=== PATIENT | male | born 1950 | race Caucasian/White ===

== ENCOUNTER 2021-09-06 12:49 | Emergency (ER) | payer MEDICARE, MEDICAID, SELFPAY ==
[2021-09-06] VITALS (25 sets, daily range): BP systolic 106–131; BP diastolic 42–77; PULSE 56–112; RESP 14–31; TEMP 37.3; O2SAT 96–100
--- NOTE | ~2021-09-06 | XR_ITS ---
EXAMINATION: XR knee RT 3V DATE: 09/06/2021 15:28 INDICATION: Right knee pain. TECHNIQUE: 3 views of right knee were obtained. COMPARISON: None. FINDINGS: Bone alignment is normal. No fracture. There is a 3.3 cm nonaggressive lytic lesion with sc lerotic margin in proximal tibial metadiaphysis, likely benign. There is mild osteoarthritis of kathleen lofemoral compartment. There is chondrocalcinosis of the menisci. No knee joint effusion. IMPRESSION: 1. Mild right knee osteoarthritis. 2. 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 Reviewed, dictated and finalized at location B.
--- NOTE | ~2021-09-06 | CT_ITS ---
EXAMINATION: CT lumbar spine wo con DATE: 09/06/2021 14:09 INDICATION: Left low back pain post fall 2 months prior. TECHNIQUE: Computed tomography (CT) of the lumbar spine was performed without intravenous contrast. A utomated exposure control and iterative reconstruction technique were employed. The dose-length produ ct was 442.82 mGy-cm. COMPARISON: None FINDINGS: Alignment is normal. Subacute appearing L1 burst fracture with 3 mm retropulsion and 60% central vert ebral body height loss. Remaining vertebral body heights are normal. Mild disc height loss at T11-T12 there are also small Schmorl's nodes along both endplates. Mild disc height loss at L3-L4 and L4-L5. There is calcified atherosclerosis of the aorta and many of the other arteries in the visualized pos terior pelvis. Paravertebral soft tissues are unremarkable. The following disc levels are specificall y discussed: T11-T12: There is minimal bilateral facet joint osteoarthritis. There is no neural foraminal stenosi s. There is no central canal stenosis. T12-L1: Mild retropulsion of the superior posterior wall of L1. There is mild bilateral facet joint o steoarthritis. There is no neural foraminal stenosis. There is mild central canal stenosis. L1-L2: There is mild bilateral facet joint osteoarthritis. There is no neural foraminal stenosis. Th ere is no central canal stenosis. L2-L3: There is mild bilateral facet joint osteoarthritis. There is no neural foraminal stenosis. Th ere is no central canal stenosis. L3-L4: Disc is mildly bulging. There is mild bilateral facet joint osteoarthritis. There is mild left neural foraminal stenosis. There is mild central canal stenosis. L4-L5: Disc is mildly bulging. There is mild bilateral facet joint osteoarthritis. There is mild bila teral neural foraminal stenosis. There is mild central canal stenosis. L5-S1: Disc is bulging. There is mild bilateral facet joint osteoarthritis. There is mild to moderate bilateral neural foraminal stenosis. There is no central canal stenosis. IMPRESSION: 1. Subacute appearing L1 burst fracture with 60% central vertebral body height loss and 3 mm retropul gabby resulting in mild central canal stenosis at 2. Mild lumbar spondylosis. Reviewed, dictated and finalized at location A. IMPRESSION: 1. Subacute appearing L1 burst fracture with 60% central vertebral body height loss and 3 mm retropulsion resulting in mild central canal stenosis at 2. Mild lumbar spondylosis.
--- NOTE | ~2021-09-06 | XR_ITS ---
EXAMINATION: XR knee LT 3V DATE: 09/06/2021 15:28 INDICATION: Medial left knee pain. TECHNIQUE: 3 views of left knee were obtained. COMPARISON: None. FINDINGS: Bone alignment is normal. No fracture. There is mild tricompartmental osteoarthritis charac terized by tiny osteophytes. There is chondrocalcinosis of the menisci. No knee joint effusion. IMPRESSION: 1. Mild left knee osteoarthritis. Reviewed, dictated and finalized at location B.
--- NOTE | ~2021-09-06 | XR_ITS ---
EXAMINATION: XR hip LT 2V w AP pelvis DATE: 09/06/2021 13:30 INDICATION: Left hip pain post fall TECHNIQUE: Anteroposterior view of the pelvis and anteroposterior and cross-table lateral views of th e left hip were obtained. COMPARISON: None. FINDINGS: Bone alignment is normal. Asymmetric mild varus angulation at the right hip which could be either dev elopmental or related to old healed fracture. Hypertrophic change along the cortex at the medial aspe ct of the proximal right femur which may represent physiologic response to the varus angulation of th e hip. No acute fracture. Bilateral hip joint spaces are normal. Atherosclerotic calcification in the pelvis and along the visualized proximal bilateral thighs. A few phleboliths in the pelvis. IMPRESSION: 1. No acute osseous abnormality. 2. Chronic appearing asymmetric varus angulation at the right hip which could be developmental or seq uela of old trauma. Correlate with clinical history. Reviewed, dictated and finalized at location A. IMPRESSION: 1. No acute osseous abnormality. 2. Chronic appearing asymmetric varus angulation at the right hip which could b e developmental or sequela of old trauma. Correlate with clinical history.
--- NOTE | 2021-09-06 13:16 | ED.GENADULT ---
HPI - General Adult General Chief complaint: Fall Stated complaint: leg pain Time Seen by Provider: 09/07/21 00:18 History of Present Illness HPI narrative: Patient is a 70-year-old male who presents ER with inability to walk and constipation. Patient reports that 2 months ago he fell backwards onto his tailbone. Since then he has had pain and has been unable to walk due to pain in his knees and buttock. He reports he can get up from his bed to get to a bedside commode to defecate and he otherwise pees in a cup. He has no numbness or tingling to his lower extremities. He did not strike his head or lose consciousness. He has not had a bowel movement in 5 days and he reports today he was unable to use his legs because his knees hurt despite not having any new trauma. Related Data Allergies Allergy/AdvReac Type Severity Reaction Status Date / Time Penicillins AdvReac Swelling Verified 09/06/21 12:55 Review of Systems Review of Systems: All systems reviewed & are unremarkable except as noted in HPI and below Constitutional: Constitutional: Denies chills and Denies fever(s) Cardiovascular: Cardiovascular: Denies chest pain and Denies rapid heart rate Respiratory: Respiratory: Denies cough and Denies dyspnea Gastrointestinal: Gastrointestinal: Denies abdominal pain, Reports constipation, Denies diarrhea, Denies nausea and Denies vomiting Genitourinary: Genitourinary: Denies oliguria, Denies dysuria, Denies urinary frequency and Denies urinary incontinence Musculoskeletal: Musculoskeletal: Reports back pain, Reports arthralgias, Denies joint swelling and Denies muscle cramps Neurologic: Denies headache(s), Denies focal weakness and Denies numbness PMFSH Past Medical History Medical History (Updated 09/06/21 @ 20:18 by Matthieu Parks MD) COPD (chronic obstructive pulmonary disease) Surgical History Surgical History (Updated 09/06/21 @ 20:14 by Matthieu Parks MD) No history of previous surgery Social History Social History (Updated 09/06/21 @ 20:14 by Matthieu Parks MD) Smoking status: Former smoker Exam Narrative: GENERAL: Chronically ill-appearing, well-nourished, and in no acute distress. HEAD: Normocephalic, atraumatic. EYES: PERRL and EOMI. ENT: Mucous membranes moist. CHEST: Clear to auscultation. No respiratory distress. HEART: Regular rate and rhythm. Normal peripheral pulses. ABDOMEN: Soft, nontender, nondistended. Normal rectal tone and normal sensation of the perineum. EXTREMITIES: Bilateral lower extremities with plantar flexion and dorsiflexion intact at the ankle with 5/5 strength. Patient can have his legs extended at the knees and then pulls them back into a flexed position due to pain, strength is 4/5. Hip strength 4/5. No palpable point tenderness to the knees. Patient reports tenderness over the lateral aspect left hip. All range of motion testing is shaky and does not seem particularly fluid. Back: No reproducible midline tenderness of T/L-spine. No reproducible paraspinal muscular tenderness. No tenderness over the tailbone or sacrum or SI joints. SKIN: Warm, dry, no rash. NEURO: Alert and oriented x3. Lower extremity weakness as noted above. No sharp/soft deficit in the extremities and perineum. Course Course Emergency Course: Patient made aware of imaging results. I discussed the case with Dr. Celaya at [facility] for the spine team. He is excepted the patient as a direct admit under the care of Dr. Aragon. Awaiting a bed for transfer. Patient stable. Vital Signs Vital signs: Vital Signs Temperature 99.2 F 09/06/21 12:46 Pulse Rate 112 H 09/06/21 12:46 Respiratory Rate 31 H 09/06/21 12:46 Blood Pressure 122/77 09/06/21 12:46 Pulse Oximetry 98 09/06/21 12:46 Oxygen Delivery Nasal Cannula 09/06/21 12:46 Oxygen Flow Rate 3 09/06/21 12:46 Temperature 99.2 F 09/06/21 12:46 Pulse Rate 78 09/07/21 04:50 Respiratory Rate 15 09/07/21 04:50 Blood
[2021-09-06 13:51] LABS: Basophils Absolute Auto 0.1 K/mm3 (0.0-0.1); Basophils Percent Auto 0.6 % (0.2-1.2); Eosinophils Absolute Auto 0.1 K/mm3 (0-0.3); Eosinophils Percent Auto 1.3 % (0-4.4); Hemoglobin 11.4 g/dL (14.0-18.0); Immature Granulocyte Absolute 0.03 K/mm3 (0.00-0.031); Immature Granulocyte Percent A 0.3 % (0-0.5); Lymphocytes Absolute Auto 0.85 K/mm3 (0.9-3.2); Lymphocytes Percent Auto 8.5 % (18.3-44.2); Mean Corpuscular Hemoglobin 27.1 pg (26-34); Mean Corpuscular Volume 90.5 fl (80-100); Mean Platelet Volume 11.1 fl (7.4-10.4); Monocytes Absolute Auto 1.2 K/mm3 (0.1-0.6); Monocytes Percent Auto 12.1 % (2.6-8.5); Neutrophils Absolute Auto 7.7 K/mm3 (1.3-6.7); Neutrophils Percent Auto 77.2 % (45.5-73.1); Platelet Count Result 398 k/mm3 (150-375); Red Cell Distribution Width 15.9 % (11.5-14.5)
[2021-09-06] MEDS: MORPHINE SULFATE (*CRX) 4 MG/ML INJ IV PUSH ×3 (13:54→20:31)
[2021-09-06 14:04] LABS: Alanine Aminotransferase 11 U/L (6-50); Alkaline Phosphatase 64 U/L (38-126); Anion Gap 5 mmol/L (8-16); Aspartate Amino Transferase 18 U/L (17-59); Bilirubin,Total 0.9 mg/dL (0.2-1.3); Blood Urea Nitrogen 15 mg/dL (9-20); Calcium 9.2 mg/dL (8.4-10.2); Carbon Dioxide 33 mmol/L (22-30); Chloride 103 mmol/L (98-107); Creatine Kinase 23 U/L (55-170); Estimated CRCL calculation 75 ml/min; Estimated Glomerular Filt Rate > 60; Glucose 108 mg/dL (65-110); Potassium 4.3 mmol/L (3.4-5.0); Sodium 141 mmol/L (137-145)
[2021-09-06 14:14] LABS: INR 1.2; Prothrombin Time 14.5 Seconds (11.1-14.7)
[2021-09-06 14:15] LABS: Partial Thromboplastin Time 34.3 SECONDS (22.3-36.8)
[2021-09-06] MEDS: SODIUM CHLORIDE 0.9% IV 1,000 ML 999 ML IV CONT (14:32)
--- NOTE | 2021-09-06 16:09 | PC.NURSE ---
pt. requested to be called and updated. reached at the house phone [phone]. RN given update to at this time.
--- NOTE | 2021-09-06 16:25 | PC.NURSE ---
Spoke with Dominique called to triage pt awaiting bed. called and wants update once a room is available [phone]
[2021-09-06 17:00] LABS: SARS-CoV-2 RNA PCR Negative
[2021-09-06] MEDS: ACETAMINOPHEN 325 MG TABLET 650 MG PO (17:50)
[2021-09-06] MEDS: IBUPROFEN 600 MG TABLET PO (22:31)
[2021-09-07] VITALS (25 sets, daily range): BP systolic 107–143; BP diastolic 52–84; PULSE 76–97; RESP 13–24; O2SAT 96–100
[2021-09-07] MEDS: MORPHINE SULFATE (*CRX) 4 MG/ML INJ IV PUSH ×2 (00:36→04:12)
[2021-09-07] MEDS: ALBUTEROL SULFATE NEB 2.5 MG/3 ML INH INHALATION (01:19)
[2021-09-07] MEDS: IPRATROPIUM BR 0.02% INH SOLN 0.5 MG/2.5 ML VIAL INHALATION (01:19)
--- NOTE | 2021-09-07 03:47 | PC.NURSE ---
This nurse gave updated information on the patient to Ronald at the [facility] transfer center. No bed available at this time.
--- NOTE | 2021-09-07 04:20 | PC.NURSE ---
This nurse received a bed assignment from Ronald at the [facility] Transfer center. Bed assignment is Room [address] on the [facility] Main [place].This nurse gave report to Sangeeta AUGUSTIN
== END 2021-09-07 05:08 | disposition short-term general hospital (02) ==
PROVIDERS: Emergency Medicine; Emergency Provider Emergency Medicine
DX: S32.011A Stable burst fracture of first lumbar vertebra, initial encounter for closed fracture (principal); M48.061 Spinal stenosis, lumbar region without neurogenic claudication; M47.816 Spondylosis without myelopathy or radiculopathy, lumbar region; J44.9 Chronic obstructive pulmonary disease, unspecified; Z20.822 Contact with and (suspected) exposure to COVID-19; Z87.891 Personal history of nicotine dependence; M17.0 Bilateral primary osteoarthritis of knee; M89.9 Disorder of bone, unspecified; W19.XXXA Unspecified fall, initial encounter
CPT/HCPCS: 36415; 72131; 73502; 73562; 80053; 82550; 85025; 85610; 85730; 94640; 96361; 96374; 96376; 99285; A9270; C9803; J2270; J7030; U0003; U0005

== ENCOUNTER 2022-08-22 13:32 | Observation (INO) | payer MEDICARE, MEDICAID, SELFPAY ==
[2022-08-22] VITALS (42 sets, daily range): BP systolic 90–169; BP diastolic 59–97; PULSE 111–126; RESP 21–43; TEMP 36.8–37.1; O2SAT 92–100; BMI 21.0
--- NOTE | ~2022-08-22 | CT_ITS ---
EXAMINATION: CT diagnostic chest w con DATE: 08/22/2022 16:47 INDICATION: right hilum mass, TECHNIQUE: Computed tomography (CT) of the chest was performed without intravenous contrast. Addition al 3D reconstructions utilizing coronal maximum intensity projection (MIP) were performed. Automated exposure control and iterative reconstruction technique were employed. The dose-length product was 23 3.21 mGy-cm. COMPARISON: MR spine CT dated 09/06/2021 FINDINGS: Severe emphysema. Scattered small region of pleural parenchymal scarring with associated calcified no dules consistent with old granulomatous disease in the bilateral upper lobes. Additional more patchy regions of consolidation in the anterior segment of the right upper lobe and involving significant po rtion of the superior segment of the right lower lobe where fluid can be seen filling the emphysemato us airspaces consistent with pneumonia. This accounts for the masslike opacity at the right hilum on the prior radiographs. A couple significant smaller region of likely consolidation in the lingula and posterior basilar segment of the left lower lobe also suspicious for pneumonia. No pleural effusion or pneumothorax. Heart size is normal. No pericardial effusion. Thoracic aorta is normal in caliber. Mild enlargement of the central pulmonary arteries consistent with pulmonary arterial hypertension. B orderline enlarged precarinal lymph node which is likely reactive. Calcified left hilar lymph nodes c onsistent with old granulomatous disease. Visualized upper abdomen is unremarkable. Mild to moderate thoracic spondylosis. Multiple Schmorl's nodes and chronic compression fractures in the thoracic spin e. More prominent chronic L1 burst fracture with 3 mm retropulsion and 60% central vertebral body hei ght loss. IMPRESSION: 1. Severe emphysema with patchy airspace opacities in the lingula, left lower lobe and more prominent ly in the intersegment of the right upper lobe and large region of consolidation involving the superi or segment of the right lower lobe consistent with multifocal pneumonia. Recommend follow-up radiogra phs in 3 months to document resolution. 2. Mild reactive mediastinal lymphadenopathy. Reviewed, dictated and finalized at location A. IMPRESSION: 1. Severe emphysema with patchy airspace opacities in the lingula, left lower l obe and more prominently in the intersegment of the right upper lobe and large region of consolidation involving the superior segment of the right lower lobe consistent with multifocal pneumonia. Recommend follow-up radiographs in 3 damari hs to document resolution. 2. Mild reactive mediastinal lymphadenopathy.
--- NOTE | ~2022-08-22 | XR_ITS ---
EXAMINATION: XR chest 1V portable DATE: 08/22/2022 14:45 INDICATION: Dyspnea. TECHNIQUE: A single frontal view of the chest was obtained. COMPARISON: None. FINDINGS: There are lucencies in the lungs, consistent with emphysema. There are interstitial opaciti es in the lungs with a lower lung predominance. There are airspace opacities in the midlung zones joaquin aterally. A calcified left lung nodule is consistent with old granulomatous disease. The right hilum is hyperdense. No pleural effusion or pneumothorax. The heart size is normal. There are old healed ri ght rib fractures. IMPRESSION: 1. Hyperdense right hilum suspicious for lymphadenopathy. Chest CT is recommended. 2. Diffuse lung disease, likely emphysema with superimposed pneumonia and/or pulmonary edema. Reviewed, dictated and finalized at location A. IMPRESSION: 1. Hyperdense right hilum suspicious for lymphadenopathy. Chest CT is recommend ed. 2. Diffuse lung disease, likely emphysema with superimposed pneumonia and/or pu lmonary edema.
--- NOTE | ~2022-08-22 | XR_ITS ---
Portable chest x-ray Comparison: 08/22/2022 Clinical History: Shortness of breath, emphysema Findings: Severe emphysema noted. There is stable patchy airspace disease, most notably in the right midlung. Cardiomediastinal silhouette is stable. Bones and soft tissues are unremarkable. Impression: Patchy airspace disease unchanged, compatible bilateral pneumonia, better delineated on recent CT. Underlying severe emphysema. Reviewed, dictated and finalized at location . Impression: Patchy airspace disease unchanged, compatible bilateral pneumonia, better delin eated on recent CT. Underlying severe emphysema.
--- NOTE | ~2022-08-22 | XR_ITS ---
EXAMINATION: XR hip BI 2V w AP pelvis DATE: 08/22/2022 16:54 INDICATION: Pelvic pain post fall TECHNIQUE: Anteroposterior view of the pelvis and anteroposterior and frog-leg lateral views of the l eft hip and anteroposterior and frog-leg lateral views of the right hip and were obtained. COMPARISON: 09/06/2021 FINDINGS: Again seen is varus angulation of the right femoral neck which could be developmental or sequela of o ld healed fracture. Alignment is otherwise normal. No acute fractures identified. Mild osteoarthritis at the bilateral hip joints. Mild lumbar spondylosis. Excreted contrast is seen along portions of th e bilateral ureters and in the bladder from the earlier contrast-enhanced CT of the chest. Atheroscle rotic calcifications extending from the abdominal aorta into the arteries in the pelvis and proximal thighs. IMPRESSION: 1. No acute osseous abnormality. Reviewed, dictated and finalized at location A.
--- NOTE | ~2022-08-22 | CT_ITS ---
EXAMINATION: CT brain wo con DATE: 08/22/2022 16:47 INDICATION: Confusion TECHNIQUE: Computed tomography (CT) of the head was performed without intravenous contrast. Sagittal and coronal reconstructions were performed. The mA was adjusted according to patient size. Iterative reconstruction technique was employed. The dose-length product was 1059.33 mGy-cm. COMPARISON: None FINDINGS: No acute intracranial hemorrhage, acute infarction or abnormal extra axial fluid collection. There is mild scattered white matter hypoattenuation consistent with chronic small vessel ischemic disease. S ymmetric prominence of the sulci and ventricles consistent with mild to moderate age-appropriate diff use cerebral volume loss. Ventricles are normal and symmetric. No mass/mass effect. Changes of bilate ral intraocular lens replacement. The orbits, paranasal sinuses and mastoid air cells are normal. Exo phytic left frontal scalp nodule. IMPRESSION: 1. No acute intracranial process. 2. Age-related changes including mild to moderate diffuse volume loss and mild scattered white matter hypoattenuation consistent with chronic small vessel ischemic disease. 2. Nonspecific exophytic left frontal scalp nodule. Reviewed, dictated and finalized at location A. IMPRESSION: 1. No acute intracranial process. 2. Age-related changes including mild to moderate diffuse volume loss and mild scattered white matter hypoattenuation consistent with chronic small vessel isc hemic disease. 2. Nonspecific exophytic left frontal scalp nodule.
--- NOTE | 2022-08-22 13:50 | ECG_ITS ---
Measurements Intervals [place] Rate: 117 P: 79 WY: 155 QRS: 75 QRSD: 124 T: 71 QT: 337 QTc: 471 Interpretive Statements SINUS TACHYCARDIA RIGHT BUNDLE BRANCH BLOCK [120+ ms QRS DURATION, UPRIGHT V1, 40+ ms S IN I/aVL/V4/V5/V6] NO PREVIOUS ECG AVAILABLE FOR COMPARISON Electronically Signed On 08-22-2022 15:29:57 CDT by Jyoti Denton M.D.
--- NOTE | 2022-08-22 14:19 | PC.NURSE ---
RT at bedside to obtain blood gas.
[2022-08-22 14:27] LABS: Alveolar/Arterial O2 Gradient 98.4 mmHg; Fractional Inspired Oxygen 32 %; HCO3 ABG 25.6 mEq/l (22.0-26.0); Modified Allen's Test Pass; Oxygen Content ABG 17.1 %vol (16.0-22.0); Oxygen Saturation ABG 96.2 % (95.0-100.0); Oxyhemoglobin 94.6 % THb (90.0-100.0); PCO2 ABG 40.8 mmHg (35.0-45.0); PO2 FiO2 Ratio Arterial Blood 2.56 %; Site Drawn RIGHT RADIAL; Total Hemoglobin 12.8 g/dL (12.0-18.0); pH ABG 7.415 (7.350-7.450)
[2022-08-22 14:28] LABS: Device NASAL CANNULA
[2022-08-22 15:15] LABS: Basophils Absolute Auto 0.1 K/mm3 (0.0-0.1); Basophils Percent Auto 0.6 % (0.2-1.2); Eosinophils Absolute Auto 0.3 K/mm3 (0-0.3); Eosinophils Percent Auto 1.4 % (0-4.4); Hematocrit 40.3 % (42.0-52.0); Hemoglobin 12.4 g/dL (14.0-18.0); Immature Granulocyte Absolute 0.17 K/mm3 (0.00-0.031); Immature Granulocyte Percent A 0.9 % (0-0.5); Lymphocytes Absolute Auto 0.75 K/mm3 (0.9-3.2); Mean Corpuscular HGB Conc 30.8 g/dl (32-36); Mean Corpuscular Hemoglobin 27.9 pg (26-34); Mean Corpuscular Volume 90.6 fl (80-100); Mean Platelet Volume 11.4 fl (7.4-10.4); Monocytes Absolute Auto 1.6 K/mm3 (0.1-0.6); Monocytes Percent Auto 8.7 % (2.6-8.5); Neutrophils Absolute Auto 15.9 K/mm3 (1.3-6.7); Neutrophils Percent Auto 84.4 % (45.5-73.1); Platelet Count Result 619 k/mm3 (150-375); Red Blood Count 4.45 M/mm3 (4.6-6.20); White Blood Count 18.9 K/mm3 (4.5-10.0)
[2022-08-22 15:21] LABS: Alanine Aminotransferase 27 U/L (6-50); Albumin Level 3.8 g/dL (3.5-5.1); Alkaline Phosphatase 117 U/L (38-126); Anion Gap 8 mmol/L (8-16); Aspartate Amino Transferase 25 U/L (17-59); Blood Urea Nitrogen 17 mg/dL (9-20); Calcium 9.3 mg/dL (8.4-10.2); Carbon Dioxide 30 mmol/L (22-30); Chloride 102 mmol/L (98-107); Estimated CRCL calculation 77 ml/min; Estimated Glomerular Filt Rate > 60; Glucose 104 mg/dL (65-110); Potassium 4.5 mmol/L (3.4-5.0); Sodium 140 mmol/L (137-145)
[2022-08-22 15:22] LABS: INR 1.1; Lactic Acid Reflex 1.2 mmol/L (0.7-2.0); Prothrombin Time 14.7 Seconds (11.1-14.7)
[2022-08-22 15:23] LABS: Partial Thromboplastin Time 29.5 SECONDS (22.3-36.8)
[2022-08-22 15:35] LABS: Appearance Urine Clear (Clear); Bacteria Urine None Seen /hpf; Bilirubin Urine 1+ (Negative); Blood Urine Negative (Negative); Color Urine Dark Yellow (Yellow); Glucose Urine UA Negative (Negative); Hyaline Casts Urine Present /lpf; Ketones Urine 1+ mg/dL (Negative); Leukocyte Esterase Ur Negative LEU/UL (Negative); Nitrate Urine Negative (Negative); Non Pathogenic Casts 0-2; Protein Urine 1+ mg/dL (Negative); Specific Grav Ur 1.026 (1.001-1.035); Squamous Epithelial Cell Urine Occasional /hpf (Few); WBC Urine 0-5 /hpf
[2022-08-22 15:36] LABS: Add Urine Microscopic? YES
--- NOTE | 2022-08-22 17:23 | ED.GENADULT ---
HPI - General Adult General Chief complaint: Altered Mental Status Stated complaint: ams , increase lethargy since yesterday Time Seen by Provider: 08/22/22 16:15 Source: patient, EMS and RN notes reviewed Mode of arrival: EMS Limitations: no limitations History of Present Illness HPI narrative: This is a 71 year old male with history of chronic respiratory failure, emphysema who presents for evaluation of confusion. Patient states he family told him that he was not talking right. He states he does not feel confused. He reports productive cough with greenish yellow phlegm for 2 weeks. He has chronic shortness of breath and purse lip breathing which he states is normal. He does reports right chest pain with coughing. He denies any abdominal pain, nausea or vomiting. Related Data Home Medications Medication Instructions Recorded Confirmed albuterol sulfate 90 mcg/actuation 1 puff inhalation Q4H PRN 09/26/21 08/22/22 aerosol inhaler Shortness Of Breath atorvastatin 40 mg tablet 40 mg PO DAILY 09/26/21 08/22/22 cyanocobalamin (vitamin B-12) 500 mcg PO DAILY 09/26/21 08/22/22 1,000 mcg tablet escitalopram oxalate 20 mg tablet 20 mg PO DAILY 09/26/21 08/22/22 (Lexapro) fluticasone furoate-vilanterol 1 puff inhalation DAILY 09/26/21 08/22/22 [Breo Ellipta] furosemide 20 mg tablet 10 mg PO QAM 09/26/21 08/22/22 isosorbide mononitrate 30 mg 30 mg PO DAILY 09/26/21 08/22/22 tablet,extended release 24 hr ondansetron HCl 4 mg tablet 4 mg PO Q8H PRN Nausea And Vomiting 09/26/21 08/22/22 pantoprazole 40 mg tablet,delayed 40 mg PO QAM 09/26/21 08/22/22 release roflumilast 500 mcg tablet 500 mcg PO DAILY 09/26/21 08/22/22 tiotropium bromide 2.5 2 puff inhalation HS 09/26/21 08/22/22 mcg/actuation mist for inhalation (Spiriva Respimat) Allergies Allergy/AdvReac Type Severity Reaction Status Date / Time Penicillins AdvReac Swelling Verified 08/22/22 13:45 Review of Systems Constitutional: Constitutional: Reports weakness Cardiovascular: Cardiovascular: Denies syncope, Denies rapid heart rate, Denies irregular heart rhythm, Denies leg edema and Reports dyspnea Respiratory: Respiratory: Denies chest congestion, Reports cough, Denies hemoptysis, Reports excessive phlegm production and Reports dyspnea Gastrointestinal: Gastrointestinal: Denies abdominal pain, Denies hematochezia, Denies diarrhea and Denies vomiting Genitourinary: Genitourinary: Denies hematuria, Denies dysuria, Denies penile discharge and Denies testicular pain Musculoskeletal: Musculoskeletal: Denies joint swelling, Denies loss of height and Denies muscle weakness Neurologic: Denies syncope, Denies focal weakness and Denies weakness PMFSH Past Medical History Medical History Allergic rhinitis Anemia Anxiety B12 deficiency Bilateral lower extremity edema Compression fracture of L1 lumbar vertebra Constipation COPD (chronic obstructive pulmonary disease) Depression DVT (deep venous thrombosis) unprovoked Encounter to establish care Hx of blood clots Hyperlipidemia IBS (irritable bowel syndrome) Insomnia Knee pain, bilateral Nausea & vomiting Nocturia Requires oxygen therapy Vitamin D deficiency Weakness Surgical History Surgical History History of carpal tunnel repair History of mandibular surgery TMJ repair Hx of hernia repair No history of previous surgery Family History Family History Father Heart disease Mother Cancer Grandparent Diabetes mellitus Heart disease Grandparent Hypertension Social History Social History (Updated 08/23/22 @ 03:22 by Grace Helton NP) Social History: The patient lives with his and he has 2 children. The patient is retired. The patient stated he smoked over 30 years ago. code status Modified code Smoki
[2022-08-22] MEDS: AZITHROMYCIN 500 MG/NS 250 ML 500 MG/250 ML BAG 250 MG IVPB (17:30)
[2022-08-22] MEDS: SODIUM CHLORIDE 0.9% IV 500 ML 999 ML IV CONT (17:30)
[2022-08-22] MEDS: ALBUTEROL SULFATE NEB 2.5 MG/3 ML INH 10 MG INHALATION (17:38)
[2022-08-22 18:19] LABS: NT Pro B Type Natriuretic Pept 260 pg/mL (19.9-100); Troponin I < 0.012 ng/mL (0.000-0.034)
--- NOTE | 2022-08-22 19:34 | ADMGEN ---
This patient, Pavel Tadeo, was admitted to IMU Room 201-01. Patient/family oriented to hospital policies and general routines including ID bracelet, bed and alarms, visiting hours, pain management, procedures, bathroom and other care routines, personal items, smoking policy, room service/diet, and visiting hours. Information on how to activate the Rapid Response Team has been discussed. Patient/Family are encouraged to report perceived risks to care and to ask questions if they do not understand what they are told or what they should do.
[2022-08-22 20:21] LABS: Glucose Point of Care 114 mg/dl (65-105)
--- NOTE | 2022-08-22 20:25 | PM.IMHP ---
H&P: HPI History of Present Illness Date/Time: 08/22/22 20:25 Chief Complaint: Altered mental status Narrative: this is a 71-year-old male patient who has a history of chronic respiratory failure with emphysema. The patient came to the emergency room was complaints of confusion. The patient told his family members that he just was not talking right now because he did not feel very well and that he did not feel confused. The patient had a productive cough of greenish yellow phlegm the last 2 weeks. The patient is chronically on oxygen at 3 L per nasal cannula. The patient has been more short of breath over the last couple days and has had to use pursed breathing. The patient stated that his chest hurts when he coughs. He denies any fever chills. The patient has been taking his medications at home as scheduled. His white count is 18.9. His H&H is 12.4 and 443. His platelet counts are 619. His BNP is only 260. The patient had 1+ protein and 1+ ketones and 1+ urine bilirubin. Hip pelvis CT was read as no acute osseous abnormality. Chest CT was read as the following. Severe emphysema with patchy airspace opacities in the lingula, left lower lobe and more prominently in the intersegment of the right upper lobe and large region of consolidation involving the superior segment of the right lower lobe consistent with multifocal pneumonia. Recommend follow-up radiographs in 3 months to document resolution. 2. Mild reactive mediastinal lymphadenopathy. head CT was read as the followingNo acute intracranial process. 2. Age-related changes including mild to moderate diffuse volume loss and mild scattered white matter hypoattenuation consistent with chronic small vessel ischemic disease. 2. Nonspecific exophytic left frontal scalp nodule. chest x-ray was read as the following1. Hyperdense right hilum suspicious for lymphadenopathy. Chest CT is recommended. 2. Diffuse lung disease, likely emphysema with superimposed pneumonia and/or pulmonary edema. the patient was given azithromycin Rocephin IV fluid in the emergency room. The patient is being admitted to inpatient status on the date of service of 08/22/2022. Review of Systems Review of Systems: All systems reviewed & are unremarkable except as noted in HPI and below Constitutional: Constitutional: Reports as per HPI and Reports no additional constitutional complaints Eyes: Eyes: Reports as per HPI and Reports no additional eye complaints ENT: Reports system reviewed and no additional complaints, except as documented and Reports Normal hearing present Cardiovascular: Cardiovascular: Reports no additional cardiovascular complaints Respiratory: Respiratory: Reports no additional respiratory complaints and Reports no additional respiratory complaints Gastrointestinal: Gastrointestinal: Reports as per HPI and Reports no additional gastrointestinal complaints Musculoskeletal: Musculoskeletal: Reports no additional musculoskeletal complaints Integumentary/Breasts: Skin/Breast: Reports system reviewed and no additional complaints, except as docu and Reports as per HPI Neurologic: Reports system reviewed and no additional complaints, except as documented, Reports as per HPI and Reports Normal hearing present Psychiatric: Psychiatric: Reports no additional psychiatric complaints and Reports as per HPI Endocrine: Endocrine: Reports no additional endocrine complaints Hematologic/Lymphatic: Hematologic/Lymphatic: Reports no additional hematologic/lymphatic complaints Allergic/Immunologic: Allergic/Immunologic: Reports no additional allergic/immunologic complaints PMFSH Past Medical History Medical History Allergic rhinitis Anemia Anxiety B12 deficiency Bilateral lower extremity edema Compression fracture of L1 lumbar vertebra Constipation COPD (chronic obstructive pulmonary disease) Depression DVT (deep venous thrombosis) unprovoked Enc
[2022-08-22] MEDS: SODIUM CHLORIDE 0.9% IV 1,000 ML 125 ML IV CONT (20:33)
[2022-08-23] VITALS (17 sets, daily range): BP systolic 113–155; BP diastolic 56–87; PULSE 92–117; RESP 16–24; TEMP 36.6–37.1; O2SAT 93–99
[2022-08-23] MEDS: SODIUM CHLORIDE 0.9% IV 1,000 ML 125 ML IV CONT ×2 (04:44→12:48)
[2022-08-23 04:46] LABS: Basophils Absolute Auto 0.1 K/mm3 (0.0-0.1); Basophils Percent Auto 0.6 % (0.2-1.2); Eosinophils Absolute Auto 0.1 K/mm3 (0-0.3); Eosinophils Percent Auto 0.7 % (0-4.4); Hematocrit 34.5 % (42.0-52.0); Hemoglobin 10.4 g/dL (14.0-18.0); Immature Granulocyte Absolute 0.16 K/mm3 (0.00-0.031); Immature Granulocyte Percent A 0.9 % (0-0.5); Lymphocytes Absolute Auto 0.88 K/mm3 (0.9-3.2); Lymphocytes Percent Auto 4.8 % (18.3-44.2); Mean Corpuscular HGB Conc 30.1 g/dl (32-36); Mean Corpuscular Hemoglobin 26.9 pg (26-34); Mean Corpuscular Volume 89.1 fl (80-100); Mean Platelet Volume 11.2 fl (7.4-10.4); Monocytes Absolute Auto 1.7 K/mm3 (0.1-0.6); Monocytes Percent Auto 9.4 % (2.6-8.5); Neutrophils Absolute Auto 15.4 K/mm3 (1.3-6.7); Neutrophils Percent Auto 83.6 % (45.5-73.1); Platelet Count Result 579 k/mm3 (150-375); Red Blood Count 3.87 M/mm3 (4.6-6.20); Red Cell Distribution Width 14.2 % (11.5-14.5); White Blood Count 18.4 K/mm3 (4.5-10.0)
[2022-08-23 04:54] LABS: Alanine Aminotransferase 24 U/L (6-50); Albumin Level 3.2 g/dL (3.5-5.1); Alkaline Phosphatase 88 U/L (38-126); Anion Gap 8 mmol/L (8-16); Aspartate Amino Transferase 29 U/L (17-59); Bilirubin,Total 0.9 mg/dL (0.2-1.3); Blood Urea Nitrogen 14 mg/dL (9-20); Calcium 8.2 mg/dL (8.4-10.2); Carbon Dioxide 27 mmol/L (22-30); Chloride 105 mmol/L (98-107); Estimated CRCL calculation 88 ml/min; Estimated Glomerular Filt Rate > 60; Glucose 112 mg/dL (65-110); Sodium 140 mmol/L (137-145)
[2022-08-23 08:02] LABS: Glucose Point of Care 108 mg/dl (65-105)
[2022-08-23] MEDS: FLUTICASONE/SALMETEROL 230-21 MCG INHALER 1 PUFF 2 PUFF INHALATION ×2 (08:09→21:02)
[2022-08-23] MEDS: UMECLIDINIUM BROMIDE 62.5 MCG ELLIPTA 1 PUFF INHALATION (08:09)
[2022-08-23] MEDS: ALBUTEROL SULFATE (*SP) AEROSOL 1 PUFF INHALATION (08:12)
[2022-08-23] MEDS: ESCITALOPRAM OXALATE 10 MG TABLET 20 MG PO (08:17)
[2022-08-23] MEDS: ROFLUMILAST 500 MCG TABLET PO (08:17)
[2022-08-23] MEDS: CYANOCOBALAMIN 500 MCG TABLET PO (08:17)
[2022-08-23] MEDS: APIXABAN 2.5 MG TABLET PO ×2 (08:17→21:41)
[2022-08-23] MEDS: FUROSEMIDE 10 MG TABLET PO (08:17)
[2022-08-23] MEDS: ISOSORBIDE MONONITRATE 30 MG TAB.ER.24H PO (08:17)
[2022-08-23] MEDS: ATORVASTATIN 40 MG TABLET PO (08:17)
[2022-08-23] MEDS: MONTELUKAST SODIUM 10 MG TABLET PO (08:17)
[2022-08-23] MEDS: PANTOPRAZOLE 40 MG TABLET PO (08:17)
--- NOTE | 2022-08-23 09:29 | PM.IMPN ---
Progress Note: A&P Assessment and Plan (1) Chronic respiratory failure: Code(s): J96.10 - Chronic respiratory failure, unspecified whether with hypoxia or hypercapnia Status: Acute Assessment and Plan: Likely secondary to multifocal pneumonia, continue antibiotics, monitor response, anticipate discharge home tomorrow Due to atypical presentation on chest x-ray, would recommend following up outpatient to confirm resolution (2) Multifocal pneumonia: Code(s): J18.9 - Pneumonia, unspecified organism Status: Acute Assessment and Plan: As above (3) Hyperlipidemia: Code(s): E78.5 - Hyperlipidemia, unspecified Status: Acute Assessment and Plan: Continue with atorvastatin (4) Anemia: Code(s): D64.9 - Anemia, unspecified Status: Acute Assessment and Plan: at baseline continue to monitor. (5) Anxiety: Code(s): F41.9 - Anxiety disorder, unspecified Status: Acute Assessment and Plan: Continue with lorazepam (6) Depression: Code(s): F32.A - Depression, unspecified Status: Acute Assessment and Plan: continue with Seroquel (7) COPD (chronic obstructive pulmonary disease): Code(s): J44.9 - Chronic obstructive pulmonary disease, unspecified Status: Acute Assessment and Plan: Continue with oxygen at 3 L per nasal cannula, continue with singular, continue with Breo Ellipta (8) DVT (deep venous thrombosis): Code(s): I82.409 - Acute embolism and thrombosis of unspecified deep veins of unspecified lower extremity Status: Acute Assessment and Plan: continue with apixaban Plan DVT prophylaxis with Eliquis GI prophylaxis not indicated Code status full code, DNI Subjective Date/time seen: 08/23/22 09:29 Interval history: 71-year-old male with history of chronic respiratory failure from COPD on 3 L of oxygen at baseline is presenting with worsening shortness of breath, productive cough and some altered mental status being treated for COPD exacerbation and multifocal pneumonia. No overnight events noted. No chest pain or shortness of breath. No nausea, vomiting or diarrhea. No fevers or chills. Patient states he feels much better than when he came in and is eager to go home. Review of Systems Review of Systems: 12 point review of systems was assessed and was negative except as noted in the HPI Exam Narrative: General: No acute distress, alert and oriented per baseline HEENT: Atraumatic, normocephalic, mucous membranes moist CV: Regular rate and rhythm, S1, S2 Lungs: Diminished breath sounds throughout, no wheeze, scattered crackles Abdomen: Soft, nontender, nondistended Extremities: Normal to inspection Skin: No rashes noted, no lesions or wounds seen Psych: Euthymic, normal affect Objective Data Vital Signs Vital Signs: Vital Signs - 24 hr 08/22/22 13:30 08/22/22 13:46 08/22/22 13:46 Temperature 98.2 F Pulse Rate 114 H 112 H Respiratory Rate 32 H 43 H Blood Pressure 117/74 Pulse Oximetry 100 100 Oxygen Delivery Oxygen Flow Rate 3 08/22/22 13:46 08/22/22 13:47 08/22/22 13:48 Temperature Pulse Rate 112 H 111 H Respiratory Rate 42 H 37 H Blood Pressure 90/72 L Pulse Oximetry 100 98 92 Oxygen Delivery Nasal Cannula Oxygen Flow Rate 3 08/22/22 13:49 08/22/22 14:00 08/22/22 14:02 Temperature Pulse Rate 114 H 114 H 113 H Respiratory Rate 24 H 31 H 39 H Blood Pressure 109/59 L Pulse Oximetry 95 95 96 Oxygen Delivery Oxygen Flow Rate 08/22/22 14:15 08/22/22 14:16 08/22/22 14:30 Temperature Pulse Rate 118 H 117 H 117 H Respiratory Rate 33 H 37 H 29 H Blood Pressure 126/85 Pulse Oximetry 97 96 Oxygen Delivery Oxygen Flow Rate 08/22/22 14:45 08/22/22 15:00 08/22/22 15:15 Temperature Pulse Rate 118 H 116 H 116 H Re
[2022-08-23 09:59] LABS: Magnesium 2.1 mg/dL (1.6-2.3)
--- NOTE | 2022-08-23 10:09 | PC.NURSE ---
Pt had a run of SVT today at 0912 am for about 1 min HR at the time was 177 pt was asymptomatic, this nurse reported finding to Dr Ricardo and she placed orders for labs Mag and TSH to check Thyroid levels.
[2022-08-23 10:36] LABS: Thyroid Stimulating Hormone 0.641 uIU/mL (0.465-4.680)
[2022-08-23 11:51] LABS: Glucose Point of Care 123 mg/dl (65-105)
--- NOTE | 2022-08-23 13:55 | PC.NURSE ---
Dr Munoz is aware of sepsis flag
[2022-08-23 16:32] LABS: Glucose Point of Care 117 mg/dl (65-105)
[2022-08-23 16:54] LABS: Basophils Absolute Auto 0.1 K/mm3 (0.0-0.1); Basophils Percent Auto 0.5 % (0.2-1.2); Eosinophils Absolute Auto 0.1 K/mm3 (0-0.3); Eosinophils Percent Auto 0.7 % (0-4.4); Hematocrit 31.3 % (42.0-52.0); Hemoglobin 9.9 g/dL (14.0-18.0); Immature Granulocyte Percent A 0.6 % (0-0.5); Lymphocytes Absolute Auto 0.81 K/mm3 (0.9-3.2); Lymphocytes Percent Auto 4.6 % (18.3-44.2); Mean Corpuscular HGB Conc 31.6 g/dl (32-36); Mean Corpuscular Hemoglobin 28.1 pg (26-34); Mean Corpuscular Volume 88.9 fl (80-100); Mean Platelet Volume 10.4 fl (7.4-10.4); Monocytes Absolute Auto 1.5 K/mm3 (0.1-0.6); Monocytes Percent Auto 8.3 % (2.6-8.5); Neutrophils Absolute Auto 15.2 K/mm3 (1.3-6.7); Neutrophils Percent Auto 85.3 % (45.5-73.1); Platelet Count Result 553 k/mm3 (150-375); Red Blood Count 3.52 M/mm3 (4.6-6.20); Red Cell Distribution Width 14.4 % (11.5-14.5); White Blood Count 17.7 K/mm3 (4.5-10.0)
[2022-08-23] MEDS: AZITHROMYCIN 500 MG/NS 250 ML 500 MG/250 ML BAG 250 MG IVPB (17:22)
--- NOTE | 2022-08-23 18:33 | PCDIET ---
This patient, Pavel Tadeo, was transferred to [facility] on 08/23/22 at 1833. Personal belongings sent with patient. Report given to Perla nurse on . Appropriate documentation sent with patient.
--- NOTE | 2022-08-23 18:45 | PC.NURSE ---
This patient, Pavel Tadeo, was received from [facility] on 08/23/22 at 1845. Patient/family oriented to unit policies and routines.
[2022-08-23 21:11] LABS: Glucose Point of Care 88 mg/dl (65-105)
[2022-08-23] MEDS: QUEtiapine FUMARATE 25 MG TABLET 12.5 MG PO (21:41)
[2022-08-24 04:20] VITALS: PULSE 101
[2022-08-24 06:02] VITALS: BP 124/58; PULSE 97; RESP 22; TEMP 36.2; O2SAT 97
[2022-08-24 08:00] VITALS: PULSE 101
[2022-08-24] MEDS: FLUTICASONE/SALMETEROL 230-21 MCG INHALER 1 PUFF 2 PUFF INHALATION (08:01)
[2022-08-24 08:02] VITALS: O2SAT 96
[2022-08-24 08:36] LABS: Glucose Point of Care 92 mg/dl (65-105)
[2022-08-24 09:40] VITALS: PULSE 97; RESP 20; O2SAT 96
[2022-08-24] MEDS: ATORVASTATIN 40 MG TABLET PO (09:40)
[2022-08-24] MEDS: CYANOCOBALAMIN 500 MCG TABLET PO (09:41)
[2022-08-24] MEDS: ISOSORBIDE MONONITRATE 30 MG TAB.ER.24H PO (09:41)
[2022-08-24] MEDS: ESCITALOPRAM OXALATE 10 MG TABLET 20 MG PO (09:41)
[2022-08-24] MEDS: ERGOCALCIFEROL 50,000 UNITS CAPSULE 50000 UNITS PO (09:41)
[2022-08-24] MEDS: ROFLUMILAST 500 MCG TABLET PO (09:41)
[2022-08-24] MEDS: APIXABAN 2.5 MG TABLET PO (09:41)
[2022-08-24] MEDS: PANTOPRAZOLE 40 MG TABLET PO (09:41)
[2022-08-24] MEDS: FUROSEMIDE 10 MG TABLET PO (09:41)
[2022-08-24] MEDS: MONTELUKAST SODIUM 10 MG TABLET PO (09:41)
[2022-08-24 12:00] VITALS: PULSE 97
[2022-08-24 12:16] LABS: Glucose Point of Care 105 mg/dl (65-105)
--- NOTE | 2022-08-24 14:46 | PM.DS ---
DS: Admitting Diagnosis Discharge Date 08/21/22 Admitting Diagnosis Shortness of breath DS: Discharge Diagnosis Discharge Diagnosis (1) Chronic respiratory failure: Code(s): J96.10 - Chronic respiratory failure, unspecified whether with hypoxia or hypercapnia Status: Acute Assessment and Plan: Likely secondary to multifocal pneumonia, continue antibiotics, monitor response, anticipate discharge home tomorrow Due to atypical presentation on chest x-ray, would recommend following up outpatient to confirm resolution (2) Multifocal pneumonia: Code(s): J18.9 - Pneumonia, unspecified organism Status: Acute Assessment and Plan: As above (3) Hyperlipidemia: Code(s): E78.5 - Hyperlipidemia, unspecified Status: Acute Assessment and Plan: Continue with atorvastatin (4) Anemia: Code(s): D64.9 - Anemia, unspecified Status: Acute Assessment and Plan: at baseline continue to monitor. (5) Anxiety: Code(s): F41.9 - Anxiety disorder, unspecified Status: Acute Assessment and Plan: Continue with lorazepam (6) Depression: Code(s): F32.A - Depression, unspecified Status: Acute Assessment and Plan: continue with Seroquel (7) COPD (chronic obstructive pulmonary disease): Code(s): J44.9 - Chronic obstructive pulmonary disease, unspecified Status: Acute Assessment and Plan: Continue with oxygen at 3 L per nasal cannula, continue with singular, continue with Breo Ellipta (8) DVT (deep venous thrombosis): Code(s): I82.409 - Acute embolism and thrombosis of unspecified deep veins of unspecified lower extremity Status: Acute Assessment and Plan: continue with apixaban Plan DVT prophylaxis with Eliquis GI prophylaxis not indicated Code status full code, DNI DS: Summary Hospital Course Hospital Course: 71-year-old male with history of chronic respiratory failure from COPD on 3 L of oxygen at baseline is presenting with worsening shortness of breath, productive cough and some altered mental status being treated for COPD exacerbation and multifocal pneumonia. Likely secondary to multifocal pneumonia, continue antibiotics, monitor response, anticipate discharge home tomorrow. Due to atypical presentation on chest x-ray, would recommend following up outpatient to confirm resolution. All symptoms resolved, he was discharged home in stable condition. See above and med rec for details. Time Spent with Patient Time attestation: Total time spent providing and/or coordinating discharge services: Exam Narrative: General: No acute distress, alert and oriented per baseline HEENT: Atraumatic, normocephalic, mucous membranes moist CV: Regular rate and rhythm, S1, S2 Lungs: Diminished breath sounds throughout, no wheeze, scattered crackles Abdomen: Soft, nontender, nondistended Extremities: Normal to inspection Skin: No rashes noted, no lesions or wounds seen Psych: Euthymic, normal affect DS: Data Data Completed and Pending Labs on day of discharge: Labs from last 24 hours 08/24/22 08/24/22 08/23/22 11:54 08:16 21:06 WBC RBC Hgb Hct MCV MCH MCHC RDW Plt Count MPV Immature Gran % (Auto) Neut % (Auto) Lymph % (Auto) Scott % (Auto) Eos % (Auto) Baso % (Auto) Lymph # (Auto) Scott # (Auto) Eos # (Auto) Baso # (Auto) Abs Immat Gran (auto) Absolute Neuts (auto) Absolute Nucleated RBC Nucleated RBC % POC Capillary Glucose 105 92 88 08/23/22 08/23/22 16:49 16:03 WBC 17.7 H RBC 3.52 L Hgb 9.9 L Hct 31.3 L MCV 88.9 MCH 28.1 MCHC 31.6 L RDW 14.4 Plt Count 553 H MPV 10.4 Immature Gran % (Auto) 0.6 H Neut % (Auto) 85.3 H Lymph % (Auto) 4.6 L Scott % (Auto) 8.3 Eos % (Auto) 0.7 Baso % (Auto) 0.5 L
== END 2022-08-24 16:17 | disposition home or self-care (01) ==
LOC: ANHED 16:15 → ANHIMU 19:12 → ANH3MED 08-24 14:46 → ANHIMU 08-26 08:25
PROVIDERS: Emergency Medicine; Admitting Provider Chiropractor; Emergency Provider General Practice; PCP Nurse Practitioner Family; Visit Provider Student in an Organized Health Care Education/Training Program
DX: J96.10 Chronic respiratory failure, unspecified whether with hypoxia or hypercapnia (principal); J18.9 Pneumonia, unspecified organism; E78.5 Hyperlipidemia, unspecified; D64.9 Anemia, unspecified; F41.9 Anxiety disorder, unspecified; F32.A Depression, unspecified; J44.9 Chronic obstructive pulmonary disease, unspecified; I82.409 Acute embolism and thrombosis of unspecified deep veins of unspecified lower extremity; R47.9 Unspecified speech disturbances; R53.1 Weakness; I45.10 Unspecified right bundle-branch block; R59.1 Generalized enlarged lymph nodes; R91.8 Other nonspecific abnormal finding of lung field; R10.2 Pelvic and perineal pain; E53.8 Deficiency of other specified B group vitamins; K58.9 Irritable bowel syndrome, unspecified; G47.00 Insomnia, unspecified; E55.9 Vitamin D deficiency, unspecified; R90.82 White matter disease, unspecified; Z87.891 Personal history of nicotine dependence; Z86.718 Personal history of other venous thrombosis and embolism; Z79.51 Long term (current) use of inhaled steroids; Z79.01 Long term (current) use of anticoagulants; Z79.899 Other long term (current) drug therapy
CPT/HCPCS: 36415; 36600; 70450; 71045; 71260; 73521; 80053; 81001; 82805; 82948; 83605; 83735; 83880; 84443; 84484; 85025; 85610; 85730; 87040; 87070; 87205; 93005; 94640; 96361; 96365; 96366; 96368; 96376; 99285; A9270; G0378; J0456; J0696; J7030; J7040; Q9967

== ENCOUNTER 2025-01-03 13:42 | Outpatient (CLI) | payer MEDICARE, SELFPAY ==
--- NOTE | ~2025-01-03 | CT_ITS ---
EXAMINATION:CT lung screening DATE: 01/03/2025 14:37 INDICATION: Personal history of nicotine dependence. TECHNIQUE: Computed tomography (CT) of the chest was performed without intravenous contrast. Automated exposure control and iterative reconstruction technique were employed. The dose-length product (DLP) was 80.29 mGy-cm. COMPARISON: Chest CT 08/22/2022 FINDINGS: There is severe emphysema. Calcified bilateral lung nodules and calcified left hilar and mediastinal lymph nodes are consistent with old granulomatous disease. There are scattered areas of scarring in the lungs. No pleural effusion. The heart size is normal. There are coronary artery calcific ations. No pericardial effusion. Calcifications in the liver and spleen are consistent with old granulomatous disease. There is a small sliding hiatal hernia. There are old right rib fractures. There is severe thoracic spondylosis. There is mild chronic height loss of many vertebral bodies. There is a chronic burst fracture of L1. IMPRESSION: 1. Lung-RADS category 2: Benign appearance or behavior. Continue annual screening with noncontrast low-dose chest CT in 12 months. Reviewed, dictated and finalized at location E. IMPRESSION: 1. Lung-RADS category 2: Benign appearance or behavior. Continue annual screeni ng with noncontrast low-dose chest CT in 12 months.
[2025-01-03 15:07] LABS: Hematocrit 45.7 % (42.0-52.0); Hemoglobin 14.4 g/dL (14.0-18.0); Immature Granulocyte Percent A 0.5 % (0-0.5); Lymphocytes Absolute Auto 1.13 K/mm3 (0.9-3.2); Mean Corpuscular HGB Conc 31.5 g/dl (32-36); Mean Corpuscular Hemoglobin 28.0 pg (26-34); Mean Corpuscular Volume 88.7 fl (80-100); Nucleated Red Blood Cells Absolute Auto 0.000 K/mm3 (0.0-0.012); Nucleated Red Blood Cells Perc 0.0 % (0.0-0.2); Platelet Count Result 227 k/mm3 (150-375); Red Blood Count 5.15 M/mm3 (4.6-6.20); White Blood Count 7.8 K/mm3 (4.5-10.0)
[2025-01-03 15:08] LABS: Add Urine Microscopic? NO; Appearance Urine Clear (Clear); Glucose Urine UA Negative (Negative); Leukocyte Esterase Ur Negative LEU/UL (Negative); Nitrate Urine Negative (Negative); Specific Grav Ur 1.010 (1.001-1.035)
[2025-01-03 15:18] LABS: Iron 102 ug/dL (49-181)
[2025-01-03 15:19] LABS: Alanine Aminotransferase 15 U/L (6-50); Albumin Level 4.2 g/dL (3.5-5.1); Alkaline Phosphatase 57 U/L (38-126); Anion Gap 9 mmol/L (4-12); Aspartate Amino Transferase 20 U/L (17-59); Bilirubin,Total 1.2 mg/dL (0.2-1.3); Blood Urea Nitrogen 14 mg/dL (9-20); Calcium 9.2 mg/dL (8.4-10.2); Carbon Dioxide 22 mmol/L (22-30); Chloride 106 mmol/L (98-107); Cholesterol 115 mg/dL (0-200); Estimated Glomerular Filt Rate > 60; Glucose 100 mg/dL (65-110); HDL Direct 39 mg/dL; Potassium 4.2 mmol/L (3.4-5.0); Sodium 137 mmol/L (137-145); Total Protein 7.2 g/dL (6.3-8.2); Triglycerides 92 mg/dL (<150)
[2025-01-03 15:27] LABS: Percent Iron Saturation 32 % (20-50)
--- OUTSIDE RECORDS SUMMARY | 2025-01-03 15:41 | XMS_ITS | Encounter Summary ---
Author Organization [facility] Healthcare Address [address] [place] [address] Care Team Providers Care Supervisor Cigar Processing Name Role Phone Unknown, Notinfile Primary Care Provider Unavail able Cesar Hernandez MD Primary Care Provider [phone] Unknown, Notinfsteven Primary Care Provider Unavail able Encounter Details Date Type Department Care Team (Late st Contact Info) Description 04/01/2021 Documentation [facility] [address] [place] [address] Liliana Pickard, RN Social History Tobacco Use Types Packs/Day Years Used Date Smoking Tobacco: Former Alcohol Use Standard Drinks/Week Comments Not Currently 0 (1 standard drink = 0.6 oz pur e alcohol) Social Connection and Isolation Panel Answer Date Recorded In a typical week, how many times do you talk on the phone with family, friends, or neighbors? More than three times a week 03/25/2021 How often do you get togethe r with friends or relatives? More than three times a week 03/25/2021 How often do you attend chur ch or bahai services? Never 03/25/2021 Do you belong to any clubs o r organizations such as mandaen groups, unions, fraternal or athletic groups, or school groups? No 03/25/2021 How often do you attend meet ings of the clubs or organizations you belong to? Never 03/25/2021 Are you , , di vorced, , never , or living with a partner? 03/25/2021 Overall Financial Resource Strain (CARDIA) Answe r Date Recorded How hard is it for you to pa y for the very basics like food, housing, medical care, and heating? Not hard at all 03/25/2021 Hunger Vital Sign Answer Date Recorded Within the past 12 months, y ou worried that your food would run out before you got the money to buy more. Never true 03/25/19 22 Within the past 12 months, t he food you bought just didn't last and you didn't have money to get more. Never true 03/25/2021 PRAPARE - Transportation Answer Date Re corded In the past 12 months, has l ack of transportation kept you from medical appointments or from getting medications? No 05/2021 In the past 12 months, has l ack of transportation kept you from meetings, work, or from getting things needed for daily living? No 03/25/2021 Housing Stability Vital Sign Answer Jose Luis e Recorded In the last 12 months, was t here a time when you were not able to pay the mortgage or rent on time? No 03/25/2021 In the last 12 months, how many places have you lived? 1 03/25/2021 In the last 12 months, was t here a time when you did not have a steady place to sleep or slept in a [place] [facility] [place] (including now)? No 03/25/2021 Sex and Gender Information Value Date Recorded Sex Assigned at Not on file Legal Sex Male 7:27 AM [employer]VENTIONAL [employer] Gender Identity Not on file Sexual Orientation Not on file documented as of this encounter Plan of Treatment Not on file documented as of this encounter Visit Diagnoses Not on filedocumented in this encounter Care Teams Supervisor Cigar Processing Relationship Specialty Start Date End Date Unknown, Notinfile PCP - General 03/29/21 09/09/21 Cesar Hernandez MD [address]: [id number] [id number] PCP - General Family Medicine 09/10/21 09/10/21 Unknown, Norma PCP - General 09/11/21 documented as of this encounter
--- OUTSIDE RECORDS SUMMARY | 2025-01-03 15:41 | XMS_ITS | Data Portability ---
Author Organization [place] [facility] [employer], Main Office Address [address] [place] [address] Assessment Encounter Date Assessment Date Assessment LastModified by Organization Details LastModified Time 04/20/2024 04/20/2024 This note is dictated and transcribed by [email or web address]. Carpenter Maintenance variances may occur. Despite proofreading, typographical errors may occur. Occasional wrong-word or '[id number]' substitutions may have occurred due to the inherent limitations of voice recording. Read the chart carefully and recognize, using context, where substitutions have occurred. Not available 05/16/2024 13:36:39 07/26/2024 07/26/2024 This note is dictated and transcribed by [email or web address]. Carpenter Maintenance variances may occur. Despite proofreading, typographical errors may occur. Occasional wrong-word or '[id number]' substitutions may have occurred due to the inherent limitations of voice recording. Read the chart carefully and recognize, using context, where substitutions have occurred. Not available 07/26/2024 14:56:24 08/01/2024 08/01/2024 Assessment: Nicotine smoke: 1.5 ppd 0520-9569 = 78 pack years Severe COPD Hypogammaglobuline candy Left leg DVT on Eliquis Plan: The following were reviewed and explained to the patient: [facility] discharge summary for 03/18/21 to 03/21/21 stay [facility] discharge summary for 06/05/21 to 06/07/21 stay PFT 03/24/19 FEV1 0.57 L (18%) PFT 06/13/21 FEV1 0.70 L (23%) PFT 06/12/22 FEV1 0.76 L (25%) PFT 07/13/23 FEV1 1.05 L (35%) Lab data 04/09/[address] 04/18/21 emphysema, no ILD, granulomatous disease (chest, liver, spleen) Chest CT 06/05/21 no PE, emphysema, no ILD, granulomatous disease (chest, liver, spleen) Chest CT 07/13/23 granulomatous disease, emphysema 2-D echocardiogram 06/05/21 diastolic dysfunction, EF 63%, mild RVE/LAE The [place] Preventive Services Task Force (USPSTF) recommends annual screening for lung cancer with low-dose computed tomography (LDCT) for adults aged 50 to 80 years who have a 20 pack-year smoking history and currently smoke or have quit within the past 15 years. The [place] [employer] (ACS) similarly recommends screening for individuals aged 50 to 80 years with a 20 pack-year history of smoking. LDCT chest ordered. Advised to continue not to smoke. ProAir Respiclick and Spiriva Respimat are no longer on the formulary. Continue albuterol HFA as needed. Continue Incruse Ellipta 1 inhalation daily. Continue Breo Ellipta 200/25 mcg 1 puff daily. Gargle after use. The patient does not know how to accurately administer the inhalers. Today, the patient was shown how to take these medications. The proper technique for delivering these medications was instructed. The patient expressed a clear understanding and demonstrated back how to use these medications. Without the proper technique, the patient will not reap the benefits of these medications as the contents will not reach the lower airways as intended to be. Adherence to therapy is advocated. Nonadherence may lead to treatment failure, further progression of the condition, and other complications. Hospitals admissions are often the result of individuals not taking prescription medications accurately. Alternatively, greater adherence to medication regimens have shown to lower rates of hospitalization and decrease total medical costs in patients with chronic medical conditions. Advocated influenza vaccination annually and pneumonia vaccination DAGOBERTO. Advocated weight loss through diet and exercise. Patient's ideal body weight according to height and gender is up to 175 lbs. Encouraged patient to adjust caloric intake to maintain/achieve ideal body weight, emphasizing on fruits, vegetables, whole grains, and fat-free or low-fat products. These include lean meats, poultry, fish, beans, eggs, and nuts and foods that are low in saturated fats, trans-fats, cholesterol, salt (sodium), and glycemic index. Stressed the importance of regular exercise up to the patient's capacity limits. In this case, we recommend occasional walking or other light activity. Follow-up: 1 week after low dose chest CT Not available 08/19/2024 16:22:17 11/10/2024 11/10/2024 Assessment: Nicotine smoke: 1.5 ppd 6583-1334 = 78 pack years Severe COPD Hypogammaglobuline candy Left leg DVT on Eliquis Plan: The following were reviewed and explained to the patient: [facility] discharge summary for 03/18/21 to 03/21/21 stay [facility] discharge summary for 06/05/21 to 06/07/21 stay PFT 03/24/19 FEV1 0.57 L (18%) PFT 06/13/21 FEV1 0.70 L (23%) PFT 06/12/22 FEV1 0.76 L (25%) PFT 07/13/23 FEV1 1.05 L (35%) Lab data 04/09/[address] 04/18/21 emphysema, no ILD, granulomatous disease (chest, liver, spleen) Chest CT 06/05/21 no PE, emphysema, no ILD, granulomatous disease (chest, liver, spleen) Chest CT 07/13/23 granulomatous disease, emphysema 2-D echocardiogram 06/05/21 diastolic dysfunction, EF 63%, mild RVE/LAE The [place] States Preventive Services Task Force (USPSTF) recommends annual screening for lung cancer with low-dose computed tomography (LDCT) for adults aged 50 to 80 years who have a 20 pack-year smoking history and currently smoke or have quit within the past 15 years. The [place] [employer] (ACS) similarly recommends screening for individuals aged 50 to 80 years with a 20 pack-year history of smoking. Low dose chest CT re-ordered. Advised to continue not to smoke. ProAir Respiclick and Spiriva Respimat are no longer on the formulary. Continue albuterol HFA as needed. Continue Incruse Ellipta 1 inhalation daily. Continue Breo Ellipta 200/25 mcg 1 puff daily. Gargle after use. The patient does not know how to accurately administer the inhalers. Today, the patient was shown how to take these medications. The proper technique for delivering these medications was instructed. The patient expressed a clear understanding and demonstrated back how to use these medications. Without the proper technique, the patient will not reap the benefits of these medications as the contents will not reach the lower airways as intended to be. Adherence to therapy is advocated. Nonadherence may lead to treatment failure, further progression of the condition, and other complications. Hospitals admissions are often the result of individuals not taking prescription medications accurately. Alternatively, greater adherence to medication regimens have shown to lower rates of hospitalization and decrease total medical costs in patients with chronic medical conditions. Advocated influenza vaccination annually and pneumonia vaccination DAGOBERTO. Advocated weight loss through diet and exercise. Patient's ideal body weight according to height and gender is up to 175 lbs. Encouraged patient to adjust caloric intake to maintain/achieve ideal body weight, emphasizing on fruits, vegetables, whole grains, and fat-free or low-fat products. These include lean meats, poultry, fish, beans, eggs, and nuts and foods that are low in saturated fats, trans-fats, cholesterol, salt (sodium), and glycemic index. Stressed the importance of regular exercise up to the patient's capacity limits. In this case, we recommend occasional walking or other light activity. Follow-up: 1 week after low dose chest CT Not available 11/10/2024 09:51:01 11/24/2024 11/24/2024 This note is dictated and transcribed by [employer]. Carpenter Maintenance variances may occur. Despite proofreading, typographical errors may occur. Occasional wrong-word or '[id number]' substitutions may have occurred due to the inherent limitations of voice recording. Read the chart carefully and recognize, using context, where substitutions have occurred. Not available 11/24/2024 14:57:11 Plan of Treatment Reminders Order Date Submit Date Provider Last Modified By Organization Details Last Modified Time Details Appointments Establish ed Patient 15 2024 01:30P John Queen DPM Not available Not available Not available Lab None recorded. Referral None recorded. Procedures None recorded. Surgeries None recorded. Imaging LDCT, chest, for lung cancer screening - Please call patient to schedule. [address] Central Scheduling, 1 [facility], [place], [address], 12/14/2024 16:23:37 LDCT, chest, for lung cancer screening - no auth required [email or web address] [place] [address], [address], [place], [address], 08/29/2024 11:48:00 Medication Orders Breo Ellipta 200 mcg-25 mcg/dose powder for inhalatio n 2024 025 [id number], [address] [place], [place], [id number], 11/10/2024 09:39:30 Incruse Ellipta 62.5 mcg/actua tion powder for inhalatio n 2024 025 [facility] #[id number], [address] [place], [place], [id number], 11/10/2024 09:39:28 albuterol sulfate 90 mcg/actua tion breath activated powder inhaler 2024 025 [facility] #[id number], [address] [place], [place], [id number], 11/10/2024 09:39:27 Breo Ellipta 200 mcg-25 mcg/dose powder for inhalatio n 2024 025 [facility] #[id number], [address] [place], [place], [id number], 08/01/2024 12:19:17 Incruse Ellipta 62.5 mcg/actua tion powder for inhalatio n 2024 025 [facility] #[id number], [address] [place], [place], [id number], 08/01/2024 12:19:16 albuterol sulfate 90 mcg/actua tion breath activated powder inhaler 2024 025 [facility] #[id number], [address], [place], [id number], 08/01/2024 12:19:15 Patient TargetsNo targets recorded. Patient InstructionsNo instructions recorded. Reason for Referral None Reported. Problems Name Problem SNOMED Code Status Onset Date Resolution Date Notes Provider Name and Address Organization Details Recorded Time Diabetes mellitus 06786708 Active Not Available [facility] 04:49:46 Dependence on supplement al oxygen [id number] Active 2020 Not Available [facility] 3 04:49:46 Ex-smoker 5790866 Active 2022 Kameron Wells MD [address] [employer], [place], [address] , [employer] 3 10:47:38 Onychomyco sis of toenails 537007075 Active 2022 Lacho Queen DPM [address] [employer], [place], [address] , [employer] 3 14:46:04 Chronic obstructiv e pulmonary disease 89323454 Active 2023 Kameron Wells MD [address], [employer], [place], [address] , [employer] 4 09:53:47 Nodule of lung 369389588 Active 2024 Kameron Wells MD [address], [employer], [place], [address] , [employer] 5 09:36:56 Notes:Medical History: Depre ssion/Anxiety Bilateral tinnitus Left hearing loss Rhinitis with postnasal drip Eosinophils 220/uL IgE 8 IU/mL Hypogammaglobulinemia Alpha-1 antitrypsin PiMM 190 mg% Severe COPD, 3 Lpm exertional O2 c/o [facility] Granulomatous disease (chest, liver, spleen) Hypertension with diastolic dysfuncttion EF 63% Mild RVE/LAE Hyperlipidemia ADINA Ventral hernia Normocytic anemia Thoracic DDD Right rib fractures L1 fracture Left leg DVT on Eliquis Onychomycosis Problem Notes None recorded. Procedures Surgical History Date Name Laterality Status Provider Name and Address Organization Details Recorded Time 11/25/19 25 Nail Debridement completed Lacho Queen DPM [address], [place], [address], [facility] [employer] [facility] [employer] 11/24/2024 14:57:15 07/27/19 25 Nail Debridement completed Lacho Queen DPM [address], [address], [place], [address], [facility] [employer] [facility] [employer] 07/26/2024 14:56:00 04/20/19 25 Nail Debridement completed Lacho Queen DPM [address], [place], [address], [facility] [employer] [facility] [employer] [facility] 05/16/2024 13:39:11 10/13/19 24 Nail Debridement completed Lacho Queen DPM [address], [place], [address], [facility] [employer] [facility] [employer] [facility] 10/15/2023 09:00:49 05/26/19 24 Nail Debridement completed Lacho Queen DPM [address], [place], [address], [employer] [facility] [employer] [facility] 05/27/2023 10:00:34 01/07/20 23 Nail Debridement completed Lacho Queen DPM [address], [place], [address], [facility] [employer] [facility] [employer] [facility] 01/06/2023 14:45:38 03/23/18 98 Hernia Surgery completed Not Available [facility] 05/21 04:41:53 03/23/18 88 Carpal tunnel surgery completed Not Available [facility] 05/21/2022 04:41:53 Imaging Results None recorded. Procedure Notes None recorded. Medical Equipment None Reported. Allergies Allergen ID Allergen Name Allergen Category Reaction Reaction Severity Criticality Documentation Date Start Date Code Code System Note Provider Name and Address Organization Details Recorded Time 1647 Product containin g penicilli n (product) medicatio n Not available Not available Not available 05/21/2022 [id number] SNOMED Not Available [facility] 05:00:51 Medications Name Sig Start Date Stop Date Status Note LastModified by Organization Details LastModified Time quetiapine 25 mg tablet TAKE 1/2 TO 1 TABLET BY MOUTH EVERY DAY AT BEDTIME 05/22 completed Not Available Not Available Not Available atorvastati n 40 mg tablet TAKE 1 TABLET BY MOUTH DAILY active Not Available Not Available No t Available prednisone 10 mg tablet TAKE 1 TABLET BY MOUTH EVERY DAY 06/27 completed Not Available Not Available Not Available doxycycline hyclate 100 mg capsule TAKE ONE CAPSULE BY MOUTH ONCE DAILY 07/10 completed Not Available Not Available Not Available ipratropium 0.5 mg-albutero l 3 mg (2.5 mg base)/3 mL nebulizatio n soln VVN BID PRN 06/13 completed Not Available Not Available Not Available azithromyci n 250 mg tablet TAKE 2 TABLETS BY MOUTH ON DAY 1THEN TAKE 1 TABLET ON DAYS 2-5 05/22 completed Not Available Not Available Not Available ofloxacin 0.3 % eye drops INSTILL 1 DROP INTO THE EYE THREE TIMES DAILY STARTING 2 DAYS BEFORE SURGERY 04/04 completed Not Available Not Available Not Available tizanidine 4 mg tablet TAKE 1 TABLET BY MOUTH THREE TIMES DAILY NEEDED active Not Available Not Available No t Available benzonatate 200 mg capsule 07/10 completed Not Available Not Available Not Available citalopram 10 mg tablet TAKE 1 TABLET BY MOUTH DAILY active Not Available Not Available No t Available ondansetron HCl 4 mg tablet TAKE 1 TABLET BY MOUTH EVERY 8 HOURS NEEDED FOR NAUSEA OR VOMITING 05/22 completed Not Available Not Available Not Available famotidine 40 mg tablet TAKE 1 TABLET BY MOUTH TWICE DAILY NEEDED FOR GERD active Not Available Not Available No t Available isosorbide mononitrate ER 30 mg tablet,exte nded release 24 hr TAKE 1 TABLET BY MOUTH DAILY active Not Available Not Available No t Available cyanocobala min (vit B-12) 1,000 mcg tablet TAKE 1 TABLET BY MOUTH ONCE DAILY active Not Available Not Available No t Available acetaminoph en 300 mg-codeine 30 mg tablet 06/27 completed Not Available Not Available Not Available ketorolac 0.5 % eye drops 04/04 completed Not Available Not Available Not Available citalopram 20 mg tablet TAKE 1 TABLET BY MOUTH EVERY DAY 07/10 completed Not Available Not Available Not Available prednisolon e acetate 1 % eye drops,suspe nsion SHAKE LIQUID AND INSTILL 1 DROP SURGICAL EYE THREE TIMES DAILY BEGINNING AFTER SURGERY 04/04 completed Not Available Not Available Not Available lorazepam 0.5 mg tablet TAKE 1 TABLET BY MOUTH TWICE DAILY NEEDED FOR ANXIETY active Not Available Not Available No t Available pantoprazol e 40 mg tablet,kyle yed release TAKE 1 TABLET BY MOUTH EVERY MORNING active Not Available Not Available No t Available oseltamivir 75 mg capsule TAKE 1 CAPSULE BY MOUTH EVERY 12 HOURS FOR 5 DAYS 05/25 completed Not Available Not Available Not Available nitroglycer in 0.[address] ONE TABLET UNDER TONGUE NEEDED FOR CHEST PAIN EVERY 5 MINUTES NEEDED UP TO 3 DOSES PER EPISODE active Not Available Not Available No t Available budesonide 0.5 mg/2 mL suspension for nebulizatio n INHALE 1 VIAL VIA NEBULIZER TWICE DAILY active Not Available Not Available No t Available folic acid 1 mg tablet 05/25 completed Not Available Not Available Not Available montelukast 10 mg tablet TAKE 1 TABLET BY MOUTH DAILY active Not Available Not Available No t Available codeine 10 mg-guaifene sin 100 mg/5 mL oral liquid TAKE 5 ML BY MOUTH EVERY 4 TO 6 HOURS NEEDED FOR COUGH active Not Available Not Available No t Available furosemide 20 mg tablet TAKE 1 TABLET BY MOUTH EVERY MORNING 05/25 completed Not Available Not Available Not Available ergocalcife rol (vitamin D2) 1,250 mcg (50,000 unit) capsule TAKE 1 CAPSULE BY MOUTH EVERY WEEK 05/25 completed Not Available Not Available Not Available lorazepam 1 mg tablet TK SS TO ONE T BID PRN active Not Available Not Available No t Available azelastine 137 mcg (0.1 %) nasal spray USE 1 SPRAY IN EACH NOSTRIL EVERY 12 HOURS active Not Available Not Available No t Available levofloxaci n 500 mg tablet TAKE 1 TABLET BY MOUTH EVERY DAY 06/27 completed Not Available Not Available Not Available methylpredn isolone 4 mg tablets in a dose pack 01/14 completed Not Available Not Available Not Available nifedipine ER 60 mg tablet,exte nded release TAKE 1 TABLET BY MOUTH EVERY DAY 06/27 completed Not Available Not Available Not Available ondansetron 4 mg disintegrat ing tablet 10/03 completed Not Available Not Available Not Available cefdinir 300 mg capsule TAKE 1 CAPSULE BY MOUTH EVERY 12 HOURS FOR 10 DAYS 05/25 completed Not Available Not Available Not Available fluticasone propionate 50 mcg/actuati on nasal spray,suspe nsion SHAKE LIQUID AND USE 1 SPRAY IN EACH NOSTRIL TWICE DAILY active Not Available Not Available No t Available doxycycline hyclate 100 mg tablet TAKE 1 TABLET BY MOUTH EVERY 12 HOURS 08/01 completed Not Available Not Available Not Available oxycodone 5 mg tablet 10/03 completed Not Available Not Available Not Available escitalopra m 10 mg tablet 07/10 completed Not Available Not Available Not Available escitalopra m 20 mg tablet 04/04 completed Not Available Not Available Not Available Spiriva with HandiHaler 18 mcg and inhalation capsules INL CONTENTS OF 1 C ONCE DAILY USING HANDIHALE R 04/04 completed Not Available Not Available Not Available ProAir HFA 90 mcg/actuati on aerosol inhaler INHALE 1-2 PUFFS PO QID PRF SOB active Not Available Not Available No t Available quetiapine 50 mg tablet TAKE 1 TABLET BY MOUTH EVERY DAY AT BEDTIME active Not Available Not Available No t Available Symbicort 160 mcg-4.5 mcg/actuati on HFA aerosol inhaler INHALE 2 PUFFS BY MOUTH TWICE DAILY 05/25 completed Not Available Not Available Not Available cholecalcif eyad (vitamin D3) 1,250 mcg (50,000 unit) capsule TAKE ONE CAPSULE BY MOUTH EVERY THURSDAY active Not Available Not Available No t Available roflumilast 500 mcg tablet TAKE 1 TABLET BY MOUTH EVERY DAY 05/25 completed Not Available Not Available Not Available Eliquis 5 mg tablet TAKE 1 TABLET BY MOUTH TWICE DAILY 07/01 completed Not Available Not Available Not Available Eliquis 2.5 mg tablet TAKE 1 TABLET BY MOUTH TWICE DAILY active Not Available Not Available No t Available Spiriva Respimat 2.5 mcg/actuati on solution for inhalation INHALE 2 PUFFS BY MOUTH EVERY DAY 05/25 completed Not Available Not Available Not Available Incruse Ellipta 62.5 mcg/actuati on powder for inhalation Inhale 1 puff every day by inhalatio n route. 2024 active Not Available Not Available Not Avai lable albuterol sulfate 90 mcg/actuati on breath activated powder inhaler INHALE 1 PUFF BY MOUTH EVERY 4 HOURS NEEDED 2024 active Not Available Not Available Not [employer]ai labval Oates Ellipta 200 mcg-25 mcg/dose powder for inhalation INHALE 1 PUFF BY MOUTH EVERY DAY active Not Available Not Available No t Available Daliresp 250 mcg tablet Take 1 tablet every day by oral route. 10/03 completed Not Available Not Available Not Available Fluzone High-Dose Quad (PF) 240 mcg/0.7 mL IM syringe ADM 0.7ML IM UTD 04/04 completed Not Available Not Available Not Available Vitals Date Recorded Body height Heart rate Respiratory rate Oxygen saturation Oxygen saturation in Arterial blood by Pulse oximetry Systolic And Diastolic Provider Name and Address Organization Details Last Updated DateTime 5 175.26 cm 94 /min 19 /min 97 % 97 % 150/81 mm[Hg] Savannah Steele [facility] [employer] 5 15:24:09 Date Recorded Body height Body mass index (BMI) Body weight Body temperature Heart rate Oxygen saturation Oxygen saturation in Arterial blood by Pulse oximetry Diastolic blood pressure Provider Name and Address Organization Details Last Updated DateTime 5 175.26 cm 25.4 kg/m2 02313.8 9 g 97.2 [degF] 74 /min 99 % 99 % 85 mm[Hg] KENDRICK Levin ND [employer] [facility] [employer] 5 13:59:45 Date Recorded Oxygen saturation Oxygen saturation in Arterial blood by Pulse oximetry Heart rate Respiratory rate Provider Name and Address Organization Details Last Updated DateTime 08/01/2024 94 % 94 % 69 /min 18 /min Kameron Wells MD [address] [place] [address], [facility] [address], [place], [address], [place] [employer] [facility] [employer] 5 12:09:28 Date Recorded Body height Body mass index (BMI) Body weight Body temperature Heart rate Systolic And Diastolic Provider Name and Address Organization Details Last Updated DateTime 5 175.26 cm 25.1 kg/m2 56925.7 g 98.1 [degF] 69 /min 124/80 mm[Hg] Marina Nuñez MA [facility] [employer] 5 11:45:52 Date Recorded Heart rate Heart rate Respiratory rate Provider Name and Address Organization Details Last Updated DateTime 11/10/2024 61 /min 61 /min 15 /min Kameron Wells MD [address], [facility] [address], [place], [address], [place] [facility] [employer] 11/10/2024 09:52:34 Date Recorded Body height Body mass index (BMI) Body weight Body temperature Oxygen saturation Oxygen saturation in Arterial blood by Pulse oximetry Systolic And Diastolic Provider Name and Address Organization Details Last Updated DateTime 175.26 cm 29.5 kg/m2 44779.4 7 g 98.4 [degF] 93 % 93 % 112/70 mm[Hg] Marina Nuñez MA [employer] 09:36:40 Date Recorded Body height Body mass index (BMI) Body weight Body temperature Oxygen saturation Oxygen saturation in Arterial blood by Pulse oximetry Heart rate Systolic And Diastolic Provider Name and Address Organization Details Last Updated DateTime 175.26 cm 29.5 kg/m2 80324.4 7 g 98.4 [degF] 96 % 96 % 78 /min 122/79 mm[Hg] KENDRICK Levin [facility] [employer] 14:32:48 Social History Question Answer Notes LastModified by Organizat ion Details LastModified Time Tobacco Smoking Status Former Smoker qut 2014 Emelia roach [employer] [facility] [employer] 09/05/2024 16:29:54 Do You Have An Advance Directive? Yes [id number] Information not available 05/21/2022 What Is Your Level Of Caffeine Consumption? Heavy [id number] Information not available 05/21/2022 How Much Tobacco Do You Chew? None [id number] Information not available 05/21/2022 In The 14 Days Before Symptom Onset, Have You Had Close Contact With A Laboratory-confir med COVID-19 While That Case Was Ill? No [id number] Information not available 05/21/2022 In The 14 Days Before Symptom Onset, Have You Had Close Contact With A Person Who Is Under Investigation For COVID-19 While That Person Was Ill? No [id number] Information not available 05/21/2022 What Type Of Diet Are You Following? REGULAR [id number] Information not available 05/21/2022 Which Illicit Or Recreational Drugs Have You Used? None [id number] Information not available 05/21/2022 Do You Have An Electrostatic Air Filter? No [id number] Information not available 05/21/2022 Do You Have A Humidifier? Yes MIGRATION.[id number] Information not available 05/21/2022 Do You Have Moisture Problems In Your Home? No MIGRATION.[id number] Information not available 05/21/2022 What Was The Date Of Your Most Recent Tobacco Screening? 11/24/2024 [email or web address] Information not available 11/24/2024 How Many Children Do You Have? 2 MIGRATION.[id number] Information not available 05/21/2022 What Is Your Current Pack Years? 30ormorepac farheens [email or web address] Information not available 09/05/2024 Do You Have Any Pets? Yes MIGRATION.[id number] Information not available 05/21/2022 Do You Use Your Seat Belt Or Car Seat Routinely? Yes Information not available 08/01/2024 Do You Have Smoke And Carbon Monoxide Detectors In Your Home? Yes Information not available 08/01/2024 At What Age Did You Start Smoking Tobacco? 12 [id number] Information not available 05/21/2022 Are You Passively Exposed To Smoke? No MIGRATION.[id number] 6085 Information not available 05/21/2022 How Much Tobacco Do You Smoke? No Was 1.5 Ppd Information not available 09/05/2024 Do You Use Sunscreen Routinely? No Information not available 08/01/2024 How Many Years Have You Smoked Tobacco? 52 [email or web address] Information not available 09/05/2024 Have You Recently Traveled Abroad? No MIGRATION.[id number] 3137 Information not available 05/21/2022 Do You Have Any Dietary Restrictions? No Information not available 08/01/2024 Sex: Male Functional Status Question Answer Note LastModified by Organizat ion Details LastModified Time What is your level of alcohol consumption? None [id number].[id number] Information not available 05/21/2022 Do you or have you ever used smokeless tobacco? Never used smokeless tobacco MIGRATION.[id number] 7335 Information not available 05/21/2022 Have you been exposed to chemicals or toxins? not that aware of Information not available 08/01/2024 What is your occupation? retired MIGRATION.[id number] 3017 Information not available 05/21/2022 Do you or have you ever used e-cigarettes or vape? Never used electronic cigarettes MIGRATION.[id number] 7690 Information not available 05/21/2022 What is your exercise level? None MIGRATION.[id number] 7809 Information not available 05/21/2022 Mental Status Question Answer Note LastModified by Organization D etails LastModified Time Do you feel stressed (tense, restless, nervous, or anxious, or unable to sleep at night)? [id number] Information not available 08/01/2024 Family History Relationship Description Onset Age of this Age Resolved Age Notes LastModified by Organization Details LastModified Time Mother Malignant neoplasm of lung [id number] Not available 05/21/2022 04:41:58 Father Heart disease MIGRATION.[id number] Not available 05/21/2022 04:41:58 Brother Heart disease [id number] Not available 05/21/2022 04:41:58 Sister Diabetes mellitus [id number] Not available 05/21/2022 04:41:58 Medical History Condition Response CHEST XRAY N NERVE DISEASE N BLINDNESS N POLIO N LUNG DISEASE/DISORDER N RADIATION / CHEMOTHERAPY N COPD N BLOOD DISEASES N EAR OR HEARING PROBLEMS Y BOWEL PROBLEMS N FEMALE PROBLEMS / INFECTIONS N DEPRESSION (INCLUDING POST ) Y STROKE/TIA N CHEST CT N ULCERS N RENAL INSUFFICIENCY N BENIGN PROSTATIC HYPERPLASIA N TB SKIN TEST N OBESITY N EXCESSIVE PERSPIRATION N GERD/NAUSEA N ANEURYSM N URINARY/BLADDER/KIDNEY PROBLEMS N CORONARY ARTERY DISEASE (CAD) N Do you have Advance directive? N USE OF BLOOD THINNERS N SKIN PROBLEMS Y EMPHYSEMA N SHORTNESS OF BREATH Y GASTROINTESTINAL DISORDER N PARATHYROID DISEASE N PERIPHERAL VASCULAR DISEASE N GASTROINTESTINAL BLEEDING N Do you have a living will? N BLOOD CLOTS N ASTHMA N CONCUSSION OR SPINAL TRAUMA N VARICOSITIES N GI PROBLEMS N CHF N AIDS/HIV N HYPERTENSION N ANXIETY DISORDER Y BLOOD TRANSFUSION N ANEMIA/BLOOD DISORDER N BRONCHITIS N TUBERCULOSIS N GLAUCOMA N SLEEP APNEA N ALLERGIES/HAYFEVER N INFECTIOUS DISEASE N HEART ARRHYTHMIA N PROSTATE N INSOMNIA N HIGH CHOLESTEROL / HYPERLIPIDEMIA N EDEMA Y CAROTID BLOCKAGE N BACK / NECK PROBLEMS N HAVE YOU BEEN HOSPITALIZED OR SEEN IN TH E ER IN THE PAST YEAR ? N ATHEROSCLEROSIS N BREAST PROBLEMS N HERNIATED DISC N DIALYSIS N FIBROMYALGIA N OSTEOPOROSIS N ARTHRITIS N Do you have a healthcare POA? N NO SIGNIFICANT PAST MEDICAL HISTORY N DIABETES, TYPE N SEASONAL ALLERGIES N HEARTBURN / REFLUX N PLEURISY N AFIB N ADD/ADHD N Bronchoscopy N HEPATITIS / LIVER DISEASE N PULMONARY DISEASE N GOUT N ALZHEIMER'S DISEASE N SLEEP DISORDER N FATIGUE Y DEMENTIA N HERPES N RETINOPATHY N SEIZURES/EPILEPSY N HEADACHES/MIGRAINES N SLEEP STUDY N VASCULAR DISEASE N DIZZINESS Y HEAD TRAUMA OR INJURY N HEART DISEASE/HEART PROBLEMS N MULTIPLE SCLEROSIS N PULMONARY FUNCTION TEST N CARDIAC ARRHYTHMIA N CANCER: SPECIFY N ANESTHESIA COMPLICATIONS N PNEUMONIA N ATRIAL FIBRILLATION N PULMONARY EMBOLISM N AUTOIMMUNE DISEASE N Past Encounters Encounter ID Performer Location Encounter Start Date Encounter Closed Date Diagnosis/Indication Diagnosis SNOMED-CT Code Diagnosis ICD10 Code Diagnosis IMO Codes Diagnosis Note [id number] [facility] _ATHENA_M IGRATION_ DEFAULT_1 _1 , 07/06/2020 00:00:00 07/11/2020 11:04:28 [id number] [facility] [address] 07/10/2020 00:00:00 07/10/2020 13:51:04 [id number] [facility] _ATHENA_M IGRATION_ DEFAULT_1 _1 , 01/04/2021 00:00:00 01/08/2021 12:51:35 [id number] Kameron Wells MD [facility] [address] 04/09/2021 00:00:00 04/11/2021 10:19:51 [id number] Kameron Wells MD [facility] [address] [address] 06/13/2021 00:00:00 06/13/2021 16:24:57 [id number] Kameron Wells MD [facility] [address] 06/27/2021 00:00:00 06/27/2021 11:08:04 [id number] MD OLIVER [facility] [address] 10/03/2021 00:00:00 10/07/2021 08:55:14 [id number] MD OLIVER [facility]ir[facility] [address] 07/01/2022 10:39:45 07/02/2022 08:26:11 Chronic obstructive pulmonary disease 70600069 J44.9 J42 Ex-smoker 6028560 Z87.89 1 F17.218 F17.391 [id number] Lacho Queen DPM [facility] [address] 01/06/2023 14:09:21 01/09/2023 11:23:52 Onychomycosis of toenails 912754631 B35.1 Patient was educated on treatment options of onychomyco sis. Patient's nails 1 through 10 were debrided without incident. Patient defers pharmacolo gical management due to possible side effects and will continue with conservati ve options. Return to clinic as needed every 3 months for this problem Unable to cut own toenails [id number] Z74.1 Secondary to COPD [id number] FRIDA [facility] [address] 05/26/2023 16:37:11 05/27/2023 13:56:58 Onychomycosis of toenails 373133138 B35.1 Patient was educated on treatment options of onychomyco sis. Patient's nails 1 through 10 were debrided without incident. Patient defers pharmacolo gical management due to possible side effects and will continue with conservati ve options. Return to clinic as needed every 3 months for this problem1-1 0 nails Diabetes mellitus 953705 09 E11.9 cont with pcp glucose recommenda tions Unable to cut own toenails 038979995 Z74.1 Secondary to COPD [id number] MD OLIVER [facility] [place] [address] [place] [address] 07/21/2023 09:20:34 07/22/2023 08:22:18 Chronic obstructive pulmonary disease 65087736 J44.9 J42 Ex-smoker 1181966 Z87.89 1 F17.218 F17.328 [id number] Lacho Queen DPM [facility] [address] 10/13/2023 16:32:45 10/15/2023 13:56:07 Onychomycosis of toenails 845133018 B35.1 nails debrided without incidentPa tient may utilize over-the-c ounter antifungal medication s as needed Diabetes mellitus 149032 09 E11.9 cont with pcp glucose recommenda tions [id number] Lacho Queen DPM [facility] [address] [address] 04/20/2024 14:55:53 05/18/2024 14:05:21 Diabetes mellitus 82599334 E11.9 cont with pcp glucose recommenda tions Onychomyco sis of toenails 300361299 B35.1 nails debrided without incidentPa tient may utilize over-the-c ounter antifungal medication s as needed [id number] Lacho Queen DPM [facility] [address] 07/26/2024 13:42:46 07/29/2024 11:43:23 Diabetes mellitus 59074845 E11.9 cont with pcp glucose recommenda tions Onychomyco sis of toenails 609511071 B35.1 nails debrided without incidentPa tient may utilize over-the-c ounter antifungal medication s as needed [id number] MD SALVATORE AguirreS[facility] [address] [address] 08/01/2024 11:12:40 08/02/2024 13:04:34 Chronic obstructive pulmonary disease 21970379 J44.9 J42 Ex-smoker 9434162 Z87.89 1 F17.218 F17.908 [id number] Kameron Wells MD [facility] Pul[facility] [place] [address] [place] [address] [address] [place] [address] 11/10/2024 09:21:49 11/14/2024 11:12:07 Chronic obstructive pulmonary disease 04814106 J44.9 J42 Ex-smoker 9669445 Z87.89 1 F17.218 F17.948 [id number] Lacho Queen DPM [facility] [place] [address] [facility] [address] [place] [address] 11/24/2024 14:14:39 11/25/2024 13:25:20 Diabetes mellitus 59261048 E11.9 cont with pcp glucose recommenda tions Onychomyco sis of toenails 658428066 B35.1 nails debrided without incidentPa tient may utilize over-the-c ounter antifungal medication s as needed Health Concerns Section Related Observation LastModified by Organization Detai ls LastModified Time None Recorded Concern Status LastModified by Organization Details LastModified Time None Recorded Advance Directives Directive Y: Payers Insurance Date Sequence Insurance Name Policy Number Policy Denney Covered Member ID Denney Member ID Guarantor Name 11/21/2024 1 [facility] (MEDICARE REPLACEMENT/A DVANTAGE - PPO) [id number] Pavel Tadeo [id number] Pavel Tadeo 10/27/2024 2 [place] (SECONDARY PLAN WHEN MEDICARE OR MEDICARE REPLACEMENT PRIMARY) Pavel Tadeo [id number] Pavel Tadeo Notes Date Note Type Note Provider Name and Address Organization Details Recorded Time 5 text/html . Patient is a 73-year-old male diabetic who returns the office for routine diabetic foot care. Lacho Queen DPM [address] [facility], [facility] [address], [place], [address], [facility] [employer] 05/16/2024 13:39:31 5 text/html . Patient is a 73-year-old male diabetic who returns for diabetic foot care overall he states he is doing well he presents in a motorized wheelchair. Patient can not reach his feet due to arthritic issues and states his nails have become elongated and he is unable to cut them. Patient denies any other complaints. Lacho Queen DPM [address] [facility], [facility] [address], [place], [address], [facility] [employer] 07/26/2024 14:56:50 5 text/html Primary care/Referring provider: Pooja Mehta, SPORTS ANNOUNCER-BCPatient was admitted to [facility] on 03/18/21 for left spontaneous pneumothorax and discharged on 03/21/21 with partial resolution of problem through the insertion and removal of a small bore chest tube. Patient was readmitted to [facility] on 03/21/21 where chest tube was re-inserted for subcutaneous emphysema. This was removed and he went home in stable condition on 03/28/21.Patient was admitted to [facility] from 06/05/21 - 06/07/21 for COPD exacerbation and left leg DVT. He received azithromycin, prednisone, Duonebs and Pulmicort nebs. He was started on Eliquis.Patient is here to go over his COPD management. Initial development of shortness of breath: 2007Duration of shortness of breath: 18 yearsCondition of shortness of breath: stableTiming of shortness of breath: morningFrequency: once a dayLimits activities: yesAggravating factors: walking to the bathroomAlleviating factors: restModified [employer] Research [employer] (mMRC) Dyspnea Scale - Grade 4Grade 0 I only get breathless with strenuous exercise .Grade 1 I get short of breath when hurrying on the level or walking up a slight hill .Grade 2 I walk slower than people of the same age on the level because of breathlessness or have to stop for breath when walking at my own pace on the level .Grade 3 I stop for breath after walking about 100 yards or after a few minutes on the level .Grade 4 I am too breathless to leave the house or I am breathless when dressing .Treatment history:Duonebs since 03/2019Proventil HFA as needed 2017 onlyProAir Respiclick as needed 2017 - lbuterol HFA as needed since 2022Spiriva Handihaler daily 2018 - 2019Spiriva Respimat 2.5 mcg 1 puff daily 2019Incruse Ellipta 1 puff daily since 2022Symbicort 160/4.5 mcg 1 puff daily reo Ellipta 200/25 mcg 1 inhalation daily since 2021 Daliresp 250 mcg daily 2021 onlyDaliresp 500 mcg daily 2021 - 2022Other symptoms:Productive cough: clearWheezing: yesChest tightness: yesOrthopnea: noFrequent throat clearing or swallowing: noPalpitations: noHeartburn: noDysphagia: noEdema: yesEnvironmental exposures:Nicotine smoke: 1.5 ppd 5289-0854 = 78 pack yearsPaint: noDye: noDust mites: yesMold: noDamp basement: noWood burning stove: noAnimal dander: dogs, last have cockatiel in 2001Cockroaches: noPollen: yesArsenic: noAsbestos: noBeryllium: noCadmium: noChromium: noCoal smoke: noDiesel fumes: noNickel: noSilica: noSoot: noEPWORTH SLEEPINESS SCALE (ESS)CHANCE OF DOZING SCORE0 = would never doze1 = slight chance of dozing2 = moderate chance of dozing3 = high chance of dozingSITUATION AND CHANCE OF DOZINGSitting and reading - 1Watching television - 1Sitting inactive in a public place (e.g. a theater or meeting) - 0As a passenger in a car for an hour without a break - 1Lying down to rest in the afternoon when circumstances permit - 1Sitting and talking to someone - 0Sitting quietly after lunch without alcohol - 1In a car, while stopped for a few minutes in the traffic - 0TOTAL SCORE 5Subjectively, patient has a slight chance of dozing. Kameron Wells MD [address] [place] [address], [facility] [address], [place], [address], [facility] [employer] 08/19/2024 16:22:23 5 text/html Primary care/Referring provider: SONU Page- CC: I did not do the chest CT yet because the weather was too hot.Patient was admitted to [facility] on 03/18/21 for left spontaneous pneumothorax and discharged on 03/21/21 with partial resolution of problem through the insertion and removal of a small bore chest tube. Patient was readmitted to [facility] on 03/21/21 where chest tube was re-inserted for subcutaneous emphysema. This was removed and he went home in stable condition on 03/28/21.Patient was admitted to [facility] from 06/05/21 - 06/07/21 for COPD exacerbation and left leg DVT. He received azithromycin, prednisone, Duonebs and Pulmicort nebs. He was started on Eliquis.Patient is here to go over his COPD management. Initial development of shortness of breath: 2007Duration of shortness of breath: 18 yearsCondition of shortness of breath: stableTiming of shortness of breath: morningFrequency: once a dayLimits activities: yesAggravating factors: walking to the bathroomAlleviating factors: restModified [employer] Grand [employer] (mMRC) Dyspnea Scale - Grade 4Grade 0 I only get breathless with strenuous exercise .Grade 1 I get short of breath when hurrying on the level or walking up a slight hill .Grade 2 I walk slower than people of the same age on the level because of breathlessness or have to stop for breath when walking at my own pace on the level .Grade 3 I stop for breath after walking about 100 yards or after a few minutes on the level .Grade 4 I am too breathless to leave the house or I am breathless when dressing .Treatment history:Duonebs since 03/2019Proventil HFA as needed 2017 onlyProAir Respiclick as needed 2017lbuterol HFA as needed since 2022Spiriva Handihaler daily 2018 - 2019Spiriva Respimat 2.5 mcg 1 puff daily 2019Incruse Ellipta 1 puff daily since 2022Symbicort 160/4.5 mcg 1 puff daily reo Ellipta 200/25 mcg 1 inhalation daily since 2021 Daliresp 250 mcg daily 2021 onlyDaliresp 500 mcg daily 2021 - 2022Other symptoms:Productive cough: clearWheezing: yesChest tightness: yesOrthopnea: noFrequent throat clearing or swallowing: noPalpitations: noHeartburn: noDysphagia: noEdema: yesEnvironmental exposures:Nicotine smoke: 1.5 ppd 0511-8478 = 78 pack yearsPaint: noDye: noDust mites: yesMold: noDamp basement: noWood burning stove: noAnimal dander: dogs, last have cockatiel in 2001Cockroaches: noPollen: yesArsenic: noAsbestos: noBeryllium: noCadmium: noChromium: noCoal smoke: noDiesel fumes: noNickel: noSilica: noSoot: noEPWORTH SLEEPINESS SCALE (ESS)CHANCE OF DOZING SCORE0 = would never doze1 = slight chance of dozing2 = moderate chance of dozing3 = high chance of dozingSITUATION AND CHANCE OF DOZINGSitting and reading - 1Watching television - 1Sitting inactive in a public place (e.g. a theater or meeting) - 1As a passenger in a car for an hour without a break - 2Lying down to rest in the afternoon when circumstances permit - 3Sitting and talking to someone - 0Sitting quietly after lunch without alcohol - 0In a car, while stopped for a few minutes in the traffic - 0TOTAL SCORE 8Subjectively, patient has a slight chance of dozing. Kameron Wells MD [address], [place] [address], [place], [address], [employer] 11/10/2024 09:52:51 5 text/html . Patient is a 74-year-old male diabetic who returns for diabetic foot care. Patient states overall he is doing well denies any new complaints. Patient would like his nails cut as they are thick and he is unable to cut them when they become long they become painful. Lacho Queen DPM [address], [place], [address], [employer] 11/24/2024 15:36:39
--- OUTSIDE RECORDS SUMMARY | 2025-01-03 15:41 | XMS_ITS | Clinical Summary ---
Author Organization [address] Address Count includes the [facility] [place] [address] Care Team Providers Care Manager [employer] Name Role Phone Unknown, Notinfile Primary Care Provider Unavail able Allergies Active Allergy Reactions Criticality Noted Date Comments Penicillins Hives Medium 03/21/2021 Medications albuterol HFA (PROVENTIL HFA,VENTOLIN HFA,PROAIR HFA) 90 mcg/actuation inhaler Inhale 2 puffs 4 (four) times a day Active atorvastatin (LIPITOR) 40 mg tablet Take 40 mg by mouth daily Active budesonide-formo teroL (SYMBICORT) 160-4.5 mcg/actuation inhaler Inhale 2 puffs 2 (two) times a day Active guaiFENesin-code ine (GUAITUSS AC) liquid 100-10 mg/5 mL Take 5 mL by mouth 3 (three) times a day as needed Active ergocalciferol (VITAMIN D) 50,000 unit capsule Take 50,000 Units by mouth once a week Active escitalopram (LEXAPRO) 20 mg tablet Take 10 mg by mouth daily Active furosemide (LASIX) 20 mg tablet furosemide 20 mg tablet TAKE 1 TABLET BY MOUTH EVERY MORNING Active ipratropium-albu teroL (DUO-NEB) 0.5-2.5 mg/3 mL nebulizer solution Take by nebulization every 6 (six) hours Active isosorbide mononitrate ER (IMDUR) 30 mg 24 hr tablet Take 30 mg by mouth daily Active LORazepam (ATIVAN) 0.5 mg tablet Take 0.5 mg by mouth every 12 (twelve) hours as needed for anxiety Active pantoprazole DR TeixeiraPROTONIX) 40 mg EC tablet Take 40 mg by mouth daily Active tiotropium bromide (SPIRIVA RESPIMAT) 2.5 mcg/actuation inhaler Inhale 2 puffs daily Active tiZANidine (ZANAFLEX) 4 mg tablet Take 4 mg by mouth every 8 (eight) hours as needed Active apixaban (ELIQUIS) 5 mg tablet Take 5 mg by mouth 2 (two) times a day Active cyanocobalamin (Vitamin B-12) 1,000 mcg tabletIndication s:Prevention of Vitamin B12 Deficiency Take 1,000 mcg by mouth daily Active nitroglycerin (NITROSTAT) 0.[address] 0.4 mg under the tongue every 5 (five) minutes as needed for chest pain Active roflumilast (DALIRESP) 500 mcg tabletIndication s:Prevention of Bronchospasm with Chronic Bronchitis Take 500 mcg by mouth daily Active montelukast (SINGULAIR) 10 mg tablet Take 10 mg by mouth daily 2 Active oxyCODONE (ROXICODONE) 5 mg immediate release tabletIndication s:Pain Take 1 tablet (5 mg total) by mouth every 4 (four) hours as needed for pain 42 tablet 2 Active folic acid (FOLVITE) 1 mg tablet Take 1 tablet (1 mg total) by mouth daily 30 tablet 2 Active multivit cabbfdke-tdfk-HX -calcium (THERA-M) 9 mg iron-400 mcg tablet Take 1 tablet by mouth daily 30 tablet 2 Active senna-docusate (PERICOLACE) 8.6-50 mg Take 2 tablets by mouth 2 (two) times a day 120 tablet 2 Active thiamine (VITAMIN B1) 100 mg tablet Take 1 tablet (100 mg total) by mouth daily 30 tablet 2 Active acetaminophen (TYLENOL) 325 mg tablet Take 2 tablets (650 mg total) by mouth every 4 (four) hours as needed for pain 30 tablet 2 Active Active Problems Problem Noted Date Diagnosed Date Burst fracture of lumbar jose francisco tebra, closed, initial encounter 09/07/2021 Moderate COPD (chronic obstructive pulmonary dis ease) 03/27/2021 Assessment & Plan (03/28/2021 1:38 PM [facility] HEAD): Patient with diffuse emphysema on imaging and home oxygen requirement before admission, presented with acute respiratory symptoms consistent with exacerbation of COPD.. he received prednisone 40mg x 6 days and azithromycin for 3 days. RECS: - continue prednisone at home dose of 10mg daily - continue duonebs and/or albuterol inhaler prn for dyspnea - continue incruse and breo controller inhalers - please perform walking oxygen assessment before discharge to guide home oxygen needs - we are going to look into arranging follow up for him at [facility] pulmonary [facility] Assessment & Plan (03/27/2021 12:34 PM REFERENCE SERVICES HEAD): Patient with diffuse emphysema on imaging and home oxygen requirement before admission, presented with acute respiratory symptoms consistent with exacerbation of COPD RECS: - can decrease prednisone to home dose of 10mg daily at discretion of ICU team - has received 5 doses as of last night - s/p 3 days of azithromycin - continue q4 duonebs + prn with plan to space out scheduled nebs if he begins to do better - continue incruse and breo controller inhalers Ruptured emphysematous bleb 03/21/2021 Assessment & Plan (03/28/2021 1:36 PM [facility] SERVICES HEAD): Presented with small left pneumothorax on CT with extensive subcutaneous emphysema after surgical chest tube insertion at OSH. Clinical suspicion is that he either had a ruptured bleb or bleb may have been mistaken as a pneumothorax, leading to chest tube insertion, which subsequently led to development of an air leak and development of extensive subQ emphysema. To this point, he's not been intubated and his respiratory mechanics are starting to look more stable on exam. We're optimistic his subcutaneous emphysema will improve further with time and agree it is acceptable to coordinate his discharge if it can be arranged safely RECS: - continue supportive care as team is currently doing - minimize positive pressure ventilation (BIPAP) as much as possible - given clinical improvement it is acceptable to begin coordinating his discharge - please assure he has adequate oxygen at home - please perform a walking oxygen assessment before discharge Assessment & Plan (03/27/2021 12:37 PM RE[facility] SERVICES HEAD): Presented with small left pneumothorax on CT with extensive subcutaneous emphysema after surgical chest tube insertion at OSH. Clinical suspicion is that he either had a ruptured bleb or bleb may have been mistaken as a pneumothorax, leading to chest tube insertion, which subsequently led to development of an air leak and development of extensive subQ emphysema. To this point, he's not been intubated and his respiratory mechanics are starting to look more stable on exam. We're optimistic his subcutaneous emphysema will improve further with time RECS: - continue supportive care as team is currently doing - minimize positive pressure ventilation (BIPAP) as much as possible Onychomycosis 10/14/2018 Immunizations Immunization Administration Dates Next Due Influenza, Quadrivalent, Hig h Dose, Preservative Free, Intrr 01/25/2020 Social History Tobacco Use Types Packs/Day Years [...] often do you attend chur ch or mandaeism services? Never 03/25/2021 Do you belong to any clubs o r organizations such as jewish groups, unions, fraternal or athletic groups, or [...] place to sleep or slept in a care home (including now)? No 03/25/2021 Sex and Gender Information Value Date Recorded Sex Assigned at Not on file Legal Sex Male 7:27 AM [facility] HEAD Gender Identity Not on file Sexual Orientation Not on file Obstetrics History Last Filed Vital Signs Vital Sign Reading Time Taken Comments Blood Pressure 126/80 10/31/2021 10:30 AM CDT Pulse 110 10/31/2021 10:30 AM CDT Temperature 37 C (98.6 F) 10/31/2021 10:30 AM CDT Respiratory Rate 18 10/31/2021 10:30 AM CDT Oxygen Saturation 99% 10/31/2021 10:30 AM CDT Inhaled Oxygen Concentration - - Weight 66.7 kg (147 lb) 09/17/2021 11:31 AM CDT Height 172.7 cm (5' 8) 09/17/2021 11:31 AM CDT Body Mass Index 22.35 09/17/2021 11:31 AM CDT Plan of Treatment Not on file Insurance [facility] MEDICARE ADVANTAGE IDPA [facility] [address] MEDICARE ADVANTAGE IDPA MEDICARE IDPA [facility] MEDICARE ADVANTAGE [facility] MEDICARE ADVANTAGE IDPA Advance Directives For more information, please contact: [phone] * Full Code (Latest Code Status on File) Date Activated Date Inactivated Comments 09/07/2021 10:09 AM 09/12/2021 12:03 AM * Full Code Date Activated Date Inactivated Comments 03/22/2021 12:04 PM 03/29/2021 5:55 AM * LIMITED - No CPR Date Activated Date Inactivated Comments 03/22/2021 12:53 AM 03/22/2021 12:04 PM Question Answer Comments Provide aggressive medical m anagement before a full cardiopulmonary arrest occurs. Use antibiotics, IV Fluids, and medical treatment unless specifically selected below: No intubation Discussed with the following attending physician : Dr. Cameron * Full Code Date Activated Date Inactivated Comments 03/21/2021 10:25 PM 03/22/2021 12:53 AM Care Teams Manager Strategic Sourcing Relationship Specialty Start Date End Date Unknown, Notinfile PCP - General 09/11/21
[2025-01-03 15:49] LABS: Thyroid Stimulating Hormone Reflex 2.550 uIU/mL (0.465-4.68)
[2025-01-03 15:53] LABS: Ferritin 92.70 ng/mL (11.1-264)
[2025-01-03 15:54] LABS: Prostate Specific Antigen 1.1 ng/mL (< OR = 4.0)
[2025-01-03 16:48] LABS: Vitamin B12 > 1000.0 pg/mL (239-931)
== END 2025-01-03 13:43 | disposition home or self-care (01) ==
PROVIDERS: PCP Nurse Practitioner Family; Visit Provider Internal Medicine Pulmonary Disease
DX: Z12.5 Encounter for screening for malignant neoplasm of prostate (principal); D64.9 Anemia, unspecified; E78.5 Hyperlipidemia, unspecified; F41.9 Anxiety disorder, unspecified; E53.8 Deficiency of other specified B group vitamins; Z87.891 Personal history of nicotine dependence; Z12.2 Encounter for screening for malignant neoplasm of respiratory organs; Z13.0 Encounter for screening for diseases of the blood and blood-forming organs and certain disorders involving the immune mechanism
CPT/HCPCS: 36415; 71271; 80053; 80061; 81003; 82607; 82728; 83540; 83550; 84153; 84443; 85025; G0103